=== PATIENT | male | born 1935 | race Asian ===

== ENCOUNTER 2018-03-22 12:21 | Emergency (ER) | payer OTHER, BC ==
[2018-03-22 12:31] VITALS: PULSE 90; BMI 26.6
[2018-03-22 13:53] LABS: VENOUS PH 7.4 (7.32-7.42)
[2018-03-22 13:59] LABS: BASO % 0.3 % (0-2.0); EOS % 1.2 % (0-4.5); HEMATOCRIT 37.2 % (35.4-49); HEMOGLOBIN 12.4 GM/dL (11.7-16.9); LYMPH % 11.8 % (8-40); MCHC 33.3 g/dl (32.0-35.9); MEAN CELL VOLUME 96.2 fl (80-96); MEAN PLT VOLUME 6.6 fl (7.5-11.1); MONO % 8.7 % (3.8-10.2); PLATELET COUNT 304 K/MM3 (134-434); RBC 3.86 M/mm3 (4.00-5.60); RDW 14.3 % (11.9-15.9); WHITE BLOOD COUNT 8.9 K/mm3 (4.0-10.0)
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
[2018-03-22 14:12] LABS: INR 1.03 (0.83-1.09); PROTHROMBIN TIME (PATIENT) 12.2 SEC (9.7-13.0)
[2018-03-22 14:14] LABS: ACTIVATED PTT 32.7 SECONDS (25.2-36.5)
[2018-03-22 14:25] LABS: ALBUMIN 3.6 g/dl (3.4-5.0); ALK PHOS 77 U/L (45-117); ANION GAP 6 MMOL/L (8-16); BILIRUBIN,TOTAL 0.4 mg/dL (0.2-1); BLOOD UREA NITROGEN 15 mg/dL (7-18); CALCIUM 8.5 mg/dL (8.5-10.1); CHLORIDE 106 mmol/L (98-107); CO2 27 mmol/L (21-32); CREATININE 1.3 mg/dL (0.55-1.3); GLUCOSE,RANDOM 96 mg/dL (74-106); MAGNESIUM 2.5 mg/dL (1.8-2.4); N-TERMINAL BNP 696.4 pg/ml (5-450); PHOSPHOROUS 3.1 mg/dL (2.5-4.9); POTASSIUM 4.5 mmol/L (3.5-5.1); SGOT/AST 29 U/L (15-37); SGPT/ALT 31 U/L (13-61); SODIUM 139 mmol/L (136-145); TOT PROT 7.5 g/dl (6.4-8.2)
[2018-03-22] MEDS ORDERED: SODIUM CHLORIDE 250 ML IV STA (15:18)
[2018-03-22] MEDS ORDERED: FUROSEMIDE 40 MG/4 ML INJECTABLE VIAL IVPUSH SCH (15:45)
[2018-03-22 16:18] LABS: URINE APPEARANCE CLEAR; URINE BILIRUBIN NEGATIVE (<2.0 mg/dL); URINE COLOR YELLOW; URINE GLUCOSE (UA) NEGATIVE (NEGATIVE); URINE KETONE 1+ (NEGATIVE); URINE LEUK ESTERASE NEGATIVE (NEGATIVE); URINE NITRITE NEGATIVE (NEGATIVE); URINE PROTEIN NEGATIVE (NEGATIVE); URINE UROBILINOGEN NEGATIVE mg/dL (0.2-1.0)
[2018-03-22 17:50] VITALS: BP 161/82; TEMP 97.9
--- NOTE | 2018-03-23 10:53 | EKG ---
Test Reason : Blood Pressure : / mmHG Vent. Rate : 082 BPM Atrial Rate : 082 BPM P-R Int : 128 ms QRS Dur : 086 ms QT Int : 378 ms P-R-T Axes : 064 062 050 degrees QTc Int : 441 ms NORMAL SINUS RHYTHM NONSPECIFIC ST AND T WAVE ABNORMALITY ABNORMAL ECG NO PREVIOUS ECGS AVAILABLE Confirmed by ROMA RODRIGUEZ MD ([id number]) on 03/23/2018 10:52:53 AM Referred By: Confirmed By:ROMA RODRIGUEZ MD
== END 2018-03-22 17:50 | disposition home or self-care (01) ==
LOC: JER 12:21 → MERGE 12:21 → JER 17:50
PROC: 3E0337Z Introduction of Electrolytic and Water Balance Substance into Peripheral Vein, Percutaneous Approach (ICD-10-PCS; principal; 2018-03-22)
DX: I50.9 Heart failure, unspecified (principal); I25.10 Atherosclerotic heart disease of native coronary artery without angina pectoris; I10 Essential (primary) hypertension; Z95.5 Presence of coronary angioplasty implant and graft; E86.0 Dehydration; R94.31 Abnormal electrocardiogram [ECG] [EKG]
CPT/HCPCS: 36415; 70450-TC; 71045-TC-FY; 80053; 81003; 82803; 83605; 83735; 83880; 84100; 84484; 85025; 85610; 85730; 87040; 87086; 87804; 93005; 93010; 96360; 99284-25

== ENCOUNTER 2018-03-22 21:59 | Inpatient (IN) | payer OTHER, BC ==
--- NOTE | 2018-03-22 22:21 | PDOC ---
Attending Attestation - Resident Resident Name: Silvestre Hinojosa - ED Attending Attestation I have performed the following: I have examined & evaluated the patient, The case was reviewed & discussed with the resident, I agree w/resident's findings & plan, Exceptions are as noted - HPI HPI: 83 yo M sent by Dr. Sun for admission. He was seen in ED earlier today ( chart was opened under another , registration has not been able to merge yet), then called back for EKG changes. Pt c/o fatigue, sleeping on my arrival in room. He has just returned from 19 hr flight from [facility], was there visiting for the past 2 weeks. He has been having lightheadedness, weakness. +Recent cough, sputum production. - Physicial Exam PE: GENERAL: Awake, alert, and fully oriented, in no acute distress HEAD: No signs of trauma EYES: PERRLA, EOMI, sclera anicteric, conjunctiva clear ENT: Auricles normal inspection, hearing grossly normal, nares patent, oropharynx clear without exudates. Moist mucosa NECK: Normal ROM, supple, no lymphadenopathy, JVD, or masses LUNGS: Breath sounds equal, clear to auscultation bilaterally. No wheezes, and no crackles HEART: Regular rate and rhythm, normal S1 and S2, no murmurs, rubs or gallops ABDOMEN: Soft, nontender, normoactive bowel sounds. No guarding, no rebound. No masses EXTREMITIES: Normal range of motion, no edema. No clubbing or cyanosis. No cords, erythema, or tenderness NEUROLOGICAL: Cranial nerves II through XII grossly intact. Normal speech, normal gait. Motor and sensation intact. SKIN: Warm, Dry, normal turgor, no rashes or lesions noted. - Medical Decision Making Pt called back by cardiology for admission for EKG changes.
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
--- NOTE | 2018-03-22 23:28 | HP ---
CHIEF COMPLAINT: Lightheadedness? PCP: Dr. Melendez HISTORY OF PRESENT ILLNESS: 83 yo M w/ PMH HTN, DM , CAD s/p stent, CHF, recent travel to [facility] p/ w 1-2 wks of worsening intermittent lightheadedness, dyspnea on exertion, and generalized weakness that began occurring while vacationing in [facility]. lightheadedness worsens when sitting up with movements. Also endorses cough white sputum in past 2 days and recent witnessed presyncopal fall on head when he was on the airplane from [facility] back [place] the [place]. Pt also says he has been having some trouble focusing. Denies any fever, chills, DUMONT, LOC, cp, n/v/d , blood in stools, urinary sxs, leg swelling, worsening leg pain (pt chronically has R leg pain from accident), numbness, tingling, blurry vision, focal deficits. Pt went to an urgent care previously and performed a chest x- ray which demonstrates some pleural effusions and an EKG demonstrated some ST depressions on EKG, they sent the patient to the ER. Pt was here earlier in the ED and CXR performed did not show any effusions. Pt had cardiology clearance to be discharged and was sent home. Per daughter, paper wood cutter called pt back and told them to return to the ER. Currently pt is asymptomatic and has no complaints besides being jetlagged. Pt has not had any lightheaded or dizziness spells while inbetween ER visits. Recent Travel: [facility] as above PAST MEDICAL HISTORY: As above PAST SURGICAL HISTORY: Stent (unknown material; "several years ago") Social History: Smoking: denies Alcohol: denies Drugs: denies Allergies No Known Allergies Allergy (Verified 03/22/18 22:04) HOME MEDICATIONS: Home Medications Medication Instructions Recorded Metoprolol Tartrate [Lopressor] 25 mg PO DAILY 12/25/12 Rosuvastatin Calcium [Crestor] 5 mg PO DAILY 12/25/12 REVIEW OF SYSTEMS As above PHYSICAL EXAMINATION Vital Signs - 24 hr 03/22/18 22:00 Temperature 99.8 F H Pulse Rate 100 H Respiratory 18 Rate Blood Pressure 158/75 O2 Sat by Pulse 98 Oximetry (%) GENERAL: Awake, alert, and fully oriented, in no acute distress. HEENT: EOMI, NAHOMY, sclera anicteric, NC/AT NECK: soft, no jvd LUNGS: CTA bilaterally. No wheezes, and no crackles. No accessory muscle use. HEART: RRR, normal S1 and S2 without murmur ABDOMEN: Soft, nontender, not distended, normoactive bowel sounds, no guarding, no rebound EXTREMITIES: 2+ pulses, warm, well-perfused. No calf tenderness. No peripheral edema. NEUROLOGICAL: Nonfocal exam. A&Ox3. Sensation grossly intact. CN II-XII intact. Strength 5/5 throughout. No nystagmus on exam PSYCHIATRIC: Cooperative. Good eye contact. Appropriate mood and affect. SKIN: Warm, dry, no rashes or lesions ASSESSMENT/PLAN: 1) Lightheadedness --Unclear etiology; maybe hx of vertigo? --Head CT and CXR negative upon first visit to ED --EKG with mild ST depressions in I, V4-V6; troponin negative --Repeat EKG to determine any definitive changes --Obs tele --? cardiology and neuro consult 2) DM --diet controlled --ISS --BGM FEN: Fluids: none Electrolyte: no abnormalities Nutrition: Diabetic diet PPX: DVT - Lovenox 40mg SQ daily dispo: Obs tele Case discussed with Dr. Naveed Kwan, DO - IM PGY-2 Visit type - Emergency Visit Emergency Visit: Yes ED Registration Date: 03/22/18 Care time: The patient presented to the Emergency Department on the above date and was hospitalized for further evaluation of their emergent condition. - New Patient This patient is new to me today: Yes Date on this admission: 03/22/18 - Critical Care Critical Care patient: No
[2018-03-23 03:34] VITALS: BMI 23.8
--- NOTE | 2018-03-23 09:32 | CON.CARD ---
Consult Consult Specialty:: Cardiology consult for Dr. Sun Referred by:: Dr. Kwan Reason for Consultation:: dizziness - History of Present Illness Chief Complaint: Dizziness upon standing and rising from seated positions History of Present Illness: 83M with CAD, Carotid atheromatous disease and HTN who was referred to ER yesterday from an urgent care center for possible CHF after he presented for evaluation of dizziness. Patient returned from the [facility] on 03/20 and states he has been feeling specifically when he stands from a seated or supine position. He even lost balance in the airplane walking to the bathroom. He denies chest pain or SOB, syncope or palpitations. No PND/orthopnea or edema. Denies focal neuro sx. Denies fevers or chills. At the [facility], there was reportedly "fluid" on CXR which was not appreciated on our study. A head CT was negative for acute findings. His BNP was mildly elevated in the 600s but he did not appear clinically volume overloaded. A low grade/borderline elevated temperature of 99.5F was noted and he was cultured in the ER and sent home. He was recalled later because comparison of current ECG to office ECG in January was slightly different showing NSST changes inferiorly and laterally that are slightly more pronounced. His cardiac enzymes are serially negative x 3. - History Source History Provided By: Patient, Medical Record - Past Medical History Cardio/Vascular: Yes: CAD (Prior PCI with known mutlvessel CAD), HTN Additional Medical History: Carotid disease/stenosis - Alcohol/Substance Use Hx Alcohol Use: Yes (SOCIAL) - Smoking History Smoking history: Never smoked Have you smoked in the past 12 months: No Aproximately how many cigarettes per day: 0 - Social History Usual Living Arrangement: With Significant Other Home Medications - Allergies Allergies/Adverse Reactions: Allergies Allergy/AdvReac Type Severity Reaction Status Date / Time No Known Allergies Allergy Verified 03/22/18 22:04 - Home Medications Home Medications: Ambulatory Orders Metoprolol Tartrate [Lopressor] 25 mg PO DAILY 12/25/12 Rosuvastatin Calcium [Crestor] 5 mg PO DAILY 12/25/12 Centrum Adults Tablet PO DAILY 03/23/18 Diltiazem HCl [Cartia Xt] PO DAILY 03/23/18 Fish Oil 1,000 mg Capsule PO DAILY 03/23/18 Magnesium Oxide 400 mg PO BID 03/23/18 Meloxicam PO BID 03/23/18 Vitamin B12 PO DAILY 03/23/18 Vitamin B6 - PO DAILY 03/23/18 Vitamin C PO DAILY 03/23/18 Family Disease History - Family Disease History Family History: Unremarkable (not pertinent to this presentation) Review of Systems Findings/Remarks: see HPI - Review of Systems Constitutional: reports: No Symptoms Cardiovascular: reports: Shortness of Breath (chronic) Respiratory: denies: No Symptoms, Cough, Exercise Intolerance, Hemoptysis, Orthopnea, PND, Snoring, SOB, SOB on Exertion, Wheezing, Other Gastrointestinal: denies: No Symptoms, Abdominal Pain, Bloating, Constipation, Diarrhea, Dysphagia, Indigestion, Melena, Nausea, Rectal Bleeding, Vomiting, Vomiting Blood, Other Breasts: denies: No Symptoms Reported, See HPI, Breast Implants, Discharge from Nipple, Lumps, Pain, Skin Changes, Other Musculoskeletal: denies: No Symptoms, Back Pain, Crepitus, Decreased ROM, Extremity Pain, Joint Pain, Joint Swelling, Muscle Pain, Muscle Cramps, Muscle Weakness, Other Integumentary: denies: No Symptoms, Blister, Bruising, Change in Color, Eczema, Erythema, Incision, Lesions, Lump, Pallor, Pruritis, Rash, Wound, Other Neurological: reports: Dizziness Endocrine: denies: No Symptoms, Excessive Sweating, Flushing, Increased Hunger, Increased Thirst, Intolerance to Cold, Intolerance to Heat, Unexplained Weight Gain, Unexplained Weight Loss, Other Hematology/Lymphatic: denies: No Symptoms, Easily Bruised, Excessive Bleeding, Swollen Glands, Other Psychiatric: denies: No Symptoms, Altered Sleep Pattern, Anxiety, Depression, Hallucinations, Panic, Paranoia, Suicidal, Other - Risk Factors Known Risk Factors: Yes: Hypertension, Other (Known CAD) Vital Signs: Vital Signs Temperature 98.6 F 03/23/18 06:20 Pulse Rate 95 H 03/23/18 06:20 Respiratory Rate 20 03/23/18 06:20 Blood Pressure 148/72 03/23/18 06:20 O2 Sat by Pulse Oximetry (%) 98 03/23/18 03:40 Constitutional: Yes: No Distress, Calm Eyes: Yes: Conjunctiva Clear Neck: Yes: Other (No visible JVD w/ patient sitting) Respiratory: Yes: CTA Bilaterally Gastrointestinal: Yes: Soft JVD: No Carotid Bruit: No PMI: Non-Displaced Heart Sounds: Yes: S1, S2 (RRR, no murmurs) Edema: No Neurological: Yes: Alert ...Motor Strength: WNL Psychiatric: Yes: WNL - Other Data Labs, Other Data: Troponin, BNP 03/22/18 23:50 Troponin I < 0.02 Troponin, BNP 03/22/18 23:50 Troponin I < 0.02 NSR 98bpm, NSST changes II, III, avF, V5, V6 Echo: Pending Holter: Pending Imaging - Results Chest X-ray: Image Reviewed (Reviewed on 03/23 : no clear CHF/ infiltrate.) Cat Scan: Report Reviewed EKG: Image Reviewed Problem List - Problems (1) Dizziness Code(s): R42 - DIZZINESS AND GIDDINESS (2) CAD (coronary artery disease) Code(s): I25.10 - ATHSCL HEART DISEASE OF [place] CORONARY ARTERY W/O ANG PCTRS Qualifiers: Coronary Disease-Associated Artery/Lesion type: [place] artery [place] vs. transplanted heart: [place] heart Associated angina: without angina Qualified Code(s): I25.10 - Atherosclerotic heart disease of [place] coronary artery without angina pectoris (3) Stented coronary artery Code(s): Z95.5 - PRESENCE OF CORONARY ANGIOPLASTY IMPLANT AND GRAFT (4) Hypertension Code(s): I10 - ESSENTIAL (PRIMARY) HYPERTENSION Qualifiers: Hypertension type: essential hypertension Qualified Code(s): I10 - Essential (primary) hypertension (5) Abnormal ECG Code(s): R94.31 - ABNORMAL ELECTROCARDIOGRAM [ECG] [EKG] (6) Carotid arterial disease Code(s): I77.9 - DISORDER OF ARTERIES AND ARTERIOLES, UNSPECIFIED Qualifiers: Laterality: unspecified laterality Assessment/Plan IMP: Postural dizziness, near syncope CAD with hx of PCI Abnl ECG Carotid artery disease HTN REC: 1. Orthostatics 2. Echo for EF and valvular assessment 3. Carotid US , although current dizziness sounds more orthostatic in nature. If posterior circulation is being considered for evaluation can consider MRA. 4. If no clear source of dizziness is identified, can consider repeating stress MPI 5. Would continue home meds including Metoprolol, Cartia (clarify dose) and ASA 81mg daily. 6. Holter to r/o arrhythmia while awaiting tele bed. 7. Mildly elevated BNP is of unclear clinical sig as he is not clinically in CHF. Echo as above as an eval of LVEF/ valvular fxn and diastolic fx. Coverage for Dr. Sun
[2018-03-23] MEDS: METOPROLOL TARTRATE 25 MG TABLET (FP) PO SCH (09:52)
[2018-03-23] MEDS ORDERED: PNEUMOC 13-VAL CONJ-DIP CRM/PF 0.5 ML DISP.SYRIN IM ONE (10:00)
[2018-03-23 10:29] LABS: BASO % 0.2 % (0-2.0); EOS % 0.2 % (0-4.5); HEMATOCRIT 35.3 % (35.4-49); HEMOGLOBIN 11.8 GM/dL (11.7-16.9); MCH 31.8 pg (25.7-33.7); MCHC 33.4 g/dl (32.0-35.9); MEAN CELL VOLUME 95.2 fl (80-96); MEAN PLT VOLUME 6.6 fl (7.5-11.1); MONO % 8.9 % (3.8-10.2); NEUT % 82.7 % (42.8-82.8); PLATELET COUNT 268 K/MM3 (134-434); RBC 3.71 M/mm3 (4.00-5.60); RDW 14.3 % (11.9-15.9); WHITE BLOOD COUNT 9.2 K/mm3 (4.0-10.0)
[2018-03-23 11:00] LABS: ANION GAP 5 MMOL/L (8-16); BLOOD UREA NITROGEN 12 mg/dL (7-18); CHLORIDE 102 mmol/L (98-107); CO2 25 mmol/L (21-32); GLUCOSE,RANDOM 101 mg/dL (74-106); SODIUM 133 mmol/L (136-145)
--- NOTE | 2018-03-23 12:17 | PN ---
Progress Note, Physician Chief Complaint: Pt is going for cardiac cath for Ischemic changes seen in stress test History of Present Illness: Pt admitted with Dizzeness persistant with EKG changes and Stress test positive - Current Medication List Current Medications: Active Medications Metoprolol Tartrate (Lopressor -) 25 mg PO DAILY [facility] Last Admin: 03/23/18 09:52 Dose: 25 mg Rosuvastatin Calcium (Crestor -) 5 mg PO HS [facility] - Objective Vital Signs: Vital Signs Temperature 98.9 F 03/23/18 10:00 Pulse Rate 89 03/23/18 10:00 Respiratory Rate 19 03/23/18 10:00 Blood Pressure 135/89 03/23/18 10:00 O2 Sat by Pulse Oximetry (%) 98 03/23/18 03:40 Constitutional: Yes: No Distress, Calm Eyes: Yes: Conjunctiva Clear, EOM Intact HENT: Yes: Atraumatic, Normocephalic Neck: Yes: Supple, Trachea Midline Cardiovascular: Yes: Regular Rate and Rhythm Respiratory: Yes: Regular, CTA Bilaterally Gastrointestinal: Yes: Normal Bowel Sounds, Soft Labs: CBC, BMP 03/23/18 10:24 03/23/18 10:24 Problem List - Problems (1) Dizziness Code(s): R42 - DIZZINESS AND GIDDINESS (2) CHF exacerbation Code(s): I50.9 - HEART FAILURE, UNSPECIFIED Qualifiers: Heart failure type: unspecified Qualified Code(s): I50.9 - Heart failure, unspecified (3) Hypertension Code(s): I10 - ESSENTIAL (PRIMARY) HYPERTENSION Qualifiers: Hypertension type: essential hypertension Qualified Code(s): I10 - Essential (primary) hypertension (4) Carotid arterial disease Code(s): I77.9 - DISORDER OF ARTERIES AND ARTERIOLES, UNSPECIFIED Qualifiers: Laterality: unspecified laterality (5) EKG abnormalities Code(s): R94.31 - ABNORMAL ELECTROCARDIOGRAM [ECG] [EKG] (6) Stented coronary artery Code(s): Z95.5 - PRESENCE OF CORONARY ANGIOPLASTY IMPLANT AND GRAFT (7) PSVT (paroxysmal supraventricular tachycardia) Code(s): I47.1 - SUPRAVENTRICULAR TACHYCARDIA
--- NOTE | 2018-03-23 12:17 | HP ---
Admitting History and Physical - Admission Chief Complaint: Light headdedness History of Present Illness: 83 yo M w/ PMH HTN, DM , CAD s/p stent, CHF, recent travel to [facility] p/w 1- 2 wks of worsening intermittent lightheadedness, dyspnea on exertion, and generalized weakness that began occurring while vacationing in [facility]. lightheadedness worsens when sitting up with movements. Also endorses cough white sputum in past 2 days and recent witnessed presyncopal fall on head when he was on the airplane from [facility] [place]. Pt also says he has been having some touble focusing. Denies any fever, chills, DUMONT, LOC, cp, n/v/d, blood in stools, urinary sxs, leg swelling, worsening leg pain (pt chronically has R leg pain from accident), numbness, tingling, blurry vision, focal deficits. Pt went to an urgent care today and performed a chest x-ray which demonstrates some pleural effusions and an EKG demonstrated some ST depressions on EKG, they sent the patient to the ER." History Source: Patient, Family Member Limitations to Obtaining History: No Limitations - Past Medical History Cardiovascular: Yes: CAD (Prior PCI with known mutlvessel CAD), HTN Gastrointestinal: Yes: Hiatal Hernia Musculoskeletal: Yes: Osteoarthritis - Past Surgical History Past Surgical History: Yes: Stent - Smoking History Smoking history: Never smoked Have you smoked in the past 12 months: No Aproximately how many cigarettes per day: 0 - Alcohol/Substance Use Hx Alcohol Use: Yes (SOCIAL) Home Medications - Allergies Allergies/Adverse Reactions: Allergies Allergy/AdvReac Type Severity Reaction Status Date / Time No Known Allergies Allergy Verified 03/22/18 22:04 - Home Medications Home Medications: Ambulatory Orders Metoprolol Tartrate [Lopressor] 25 mg PO DAILY 12/25/12 Rosuvastatin Calcium [Crestor] 5 mg PO DAILY 12/25/12 Unobtainable 03/22/18 Centrum Adults Tablet PO DAILY 03/23/18 Diltiazem HCl [Cartia Xt] PO DAILY 03/23/18 Fish Oil 1,000 mg Capsule PO DAILY 03/23/18 Magnesium Oxide 400 mg PO BID 03/23/18 Meloxicam PO BID 03/23/18 Vitamin B12 PO DAILY 03/23/18 Vitamin B6 - PO DAILY 03/23/18 Vitamin C PO DAILY 03/23/18 Review of Systems - Review of Systems Constitutional: reports: Weakness, Other (Dizziness) HENT: reports: Difficult Swallowing Gastrointestinal: reports: Dysphagia Physical Examination Vital Signs: Vital Signs Temperature 98.9 F 03/23/18 10:00 Pulse Rate 89 03/23/18 10:00 Respiratory Rate 19 03/23/18 10:00 Blood Pressure 135/89 03/23/18 10:00 O2 Sat by Pulse Oximetry (%) 98 03/23/18 03:40 Labs: CBC, BMP 03/23/18 10:24 03/23/18 10:24 Problem List - Problems (1) Dizziness Code(s): R42 - DIZZINESS AND GIDDINESS (2) CHF exacerbation Code(s): I50.9 - HEART FAILURE, UNSPECIFIED Qualifiers: Heart failure type: unspecified Qualified Code(s): I50.9 - Heart failure, unspecified (3) Hypertension Code(s): I10 - ESSENTIAL (PRIMARY) HYPERTENSION Qualifiers: Hypertension type: essential hypertension Qualified Code(s): I10 - Essential (primary) hypertension (4) PSVT (paroxysmal supraventricular tachycardia) Code(s): I47.1 - SUPRAVENTRICULAR TACHYCARDIA (5) Stented coronary artery Code(s): Z95.5 - PRESENCE OF CORONARY ANGIOPLASTY IMPLANT AND GRAFT (6) Carotid arterial disease Code(s): I77.9 - DISORDER OF ARTERIES AND ARTERIOLES, UNSPECIFIED Qualifiers: Laterality: unspecified laterality (7) Abnormal ECG Code(s): R94.31 - ABNORMAL ELECTROCARDIOGRAM [ECG] [EKG] Assessment/Plan (1) Dizziness Code(s): R42 - DIZZINESS AND GIDDINESS (2) CHF exacerbation Code(s): I50.9 - HEART FAILURE, UNSPECIFIED Qualifiers: Heart failure type: unspecified Qualified Code(s): I50.9 - Heart failure, unspecified (3) Hypertension Code(s): I10 - ESSENTIAL (PRIMARY) HYPERTENSION Qualifiers: Hypertension type: essential hypertension Qualified Code(s): I10 - Essential (primary) hypertension (4) PSVT (paroxysmal supraventricular tachycardia) Code(s): I47.1 - SUPRAVENTRICULAR TACHYCARDIA (5) Stented coronary artery Code(s): Z95.5 - PRESENCE OF CORONARY ANGIOPLASTY IMPLANT AND GRAFT (6) Carotid arterial disease Code(s): I77.9 - DISORDER OF ARTERIES AND ARTERIOLES, UNSPECIFIED Qualifiers: Laterality: unspecified laterality (7) Abnormal ECG Code(s): R94.31 - ABNORMAL ELECTROCARDIOGRAM [ECG] [EKG]
[2018-03-23] MEDS: MAGNESIUM OXIDE 400 MG TABLET (FP) PO SCH ×2 (13:24→22:00)
[2018-03-23] MEDS: ASPIRIN COATED 81 MG TABLET.EC PO SCH (13:24)
[2018-03-23] MEDS ORDERED: MAGNESIUM HYDROX 2400MG/30ML ORAL SUSPENSION 30 ML CUP PO PRN (13:24)
[2018-03-23] MEDS ORDERED: PT OWN MED DRAWER 7, Y5N ONE (14:48)
[2018-03-23] MEDS: AZITHROMYCIN 250 MG TABLET PO SCH (16:10)
--- NOTE | 2018-03-23 16:25 | CON.NEURO ---
Consult Consult Specialty:: Neurology (For Dr. Mcknight) Referred by:: Dr. Cherry An Reason for Consultation:: Dizziness - History of Present Illness Chief Complaint: Dizziness and Malaise History of Present Illness: 83 year old man with history of chronic dizziness returned from a trip to the [facility] and felt quite ill when he got home. He was jet lagged, tired, and dizzier than usual, went to urgent care and an EKG was read as suspicious resulting in eventual admission to the hospital. He has been followed for years for dizziness, which as per patient's daughter is not clearly diagnosed, as there appears to be both orthostatic and vertiginous components. He is dizzy every morning when he first gets up but this quickly passes. When he saw ENT and was subjected to rapid head turn, he experienced a sense of spinning, but reportedly that was not a reproduction of his usual dizzy feeling. He had been feeling better and stronger since getting home, until he was hospitalized and being out of his home environment, feels a bit "off" again. 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 Cardio/Vascular: Yes: CAD (Prior PCI with known mutlvessel CAD), HTN, Other ( orthostatic dizziness) Additional Medical History: Carotid disease/stenosis - Alcohol/Substance Use Hx Alcohol Use: Yes (SOCIAL) - Smoking History Smoking history: Never smoked Have you smoked in the past 12 months: No Aproximately how many cigarettes per day: 0 - Social History Usual Living Arrangement: With Significant Other Home Medications - Allergies Allergies/Adverse Reactions: Allergies Allergy/AdvReac Type Severity Reaction Status Date / Time No Known Allergies Allergy Verified 03/22/18 22:04 - Home Medications Home Medications: Ambulatory Orders Metoprolol Tartrate [Lopressor] 25 mg PO DAILY 12/25/12 Rosuvastatin Calcium [Crestor] 5 mg PO DAILY 12/25/12 Centrum Adults Tablet PO DAILY 03/23/18 Diltiazem HCl [Cartia Xt] PO DAILY 03/23/18 Fish Oil 1,000 mg Capsule PO DAILY 03/23/18 Magnesium Oxide 400 mg PO BID 03/23/18 Meloxicam PO BID 03/23/18 Vitamin B12 PO DAILY 10/14/18 Vitamin B6 - PO DAILY 03/23/18 Vitamin C PO DAILY 03/23/18 Review of Systems - Review of Systems Cardiovascular: reports: Shortness of Breath (on climbing stairs with associated fatigue) Physical Exam-Neuro Vital Signs: Vital Signs Temperature 101.0 F H 03/23/18 14:52 Pulse Rate 69 03/23/18 14:52 Respiratory Rate 20 03/23/18 14:52 Blood Pressure 126/60 03/23/18 14:52 O2 Sat by Pulse Oximetry (%) 98 03/23/18 03:40 Labs: CBC, BMP 03/23/18 10:24 03/23/18 10:24 Problem List - Problems (1) Abnormal ECG Code(s): R94.31 - ABNORMAL ELECTROCARDIOGRAM [ECG] [EKG] (2) CAD (coronary artery disease) Code(s): I25.10 - ATHSCL HEART DISEASE OF [place] CORONARY ARTERY W/O ANG PCTRS Qualifiers: Coronary Disease-Associated Artery/Lesion type: [place] artery [place] vs. transplanted heart: [place] heart Associated angina: without angina Qualified Code(s): I25.10 - Atherosclerotic heart disease of [place] coronary artery without angina pectoris (3) Carotid arterial disease Code(s): I77.9 - DISORDER OF ARTERIES AND ARTERIOLES, UNSPECIFIED Qualifiers: Laterality: unspecified laterality (4) Dizziness Code(s): R42 - DIZZINESS AND GIDDINESS (5) EKG abnormalities Code(s): R94.31 - ABNORMAL ELECTROCARDIOGRAM [ECG] [EKG] (6) Hypertension Code(s): I10 - ESSENTIAL (PRIMARY) HYPERTENSION Qualifiers: Hypertension type: essential hypertension Qualified Code(s): I10 - Essential (primary) hypertension (7) Stented coronary artery Code(s): Z95.5 - PRESENCE OF CORONARY ANGIOPLASTY IMPLANT AND GRAFT (8) Accidental fall Code(s): W19.XXXA - UNSPECIFIED FALL, INITIAL ENCOUNTER Assessment/Plan Patient with chronic dizziness and exacerbation of fatigue and general dizziness after long trip to [facility] with some jet lag and now admitted with EKG changes. Dr. Mcknight to return Saturday. I'll order MRI for his vertigo.dizziness
[2018-03-23] MEDS ORDERED: ACETAMINOPHEN 325 MG TABLET (FP) PO PRN (17:52)
[2018-03-23] MEDS: DOCUSATE SODIUM 100 MG CAPSULE (FP) PO SCH (22:00)
[2018-03-23] MEDS ORDERED: ROSUVASTATIN CA 5 MG TABLET (FP) PO SCH (22:00)
[2018-03-23] MEDS: ROSUVASTATIN CA 10 MG TABLET (FP) PO SCH (22:00)
[2018-03-24 09:16] LABS: URINE APPEARANCE CLEAR; URINE BILIRUBIN NEGATIVE (<2.0 mg/dL); URINE COLOR YELLOW; URINE GLUCOSE (UA) NEGATIVE (NEGATIVE); URINE KETONE 1+ (NEGATIVE); URINE LEUK ESTERASE NEGATIVE (NEGATIVE); URINE NITRITE NEGATIVE (NEGATIVE); URINE PROTEIN NEGATIVE (NEGATIVE); URINE UROBILINOGEN NEGATIVE mg/dL (0.2-1.0)
--- NOTE | 2018-03-24 09:47 | PN ---
Progress Note, Physician History of Present Illness: 83M with CAD, Carotid atheromatous disease and HTN who was referred to ER yesterday from an urgent care center for possible CHF after he presented for evaluation of dizziness. Patient returned from the [facility] on 03/20 and states he has been feeling specifically when he stands from a seated or supine position. He even lost balance in the airplane walking to the bathroom. He denies chest pain or SOB, syncope or palpitations. No PND/orthopnea or edema. Denies focal neuro sx. Denies fevers or chills. At the [facility], there was reportedly "fluid" on CXR which was not appreciated on our study. A head CT was negative for acute findings. His BNP was mildly elevated in the 600s but he did not appear clinically volume overloaded. A low grade/borderline elevated temperature of 99.5F was noted and he was cultured in the ER and sent home. He was recalled later because comparison of current ECG to office ECG in January was slightly different showing NSST changes inferiorly and laterally that are slightly more pronounced. - Current Medication List Current Medications: Active Medications Acetaminophen (Tylenol -) 650 mg PO Q4H PRN PRN Reason: FEVER Last Admin: 03/23/18 18:33 Dose: 650 mg Aspirin (Ecotrin -) 81 mg PO DAILY [facility] Last Admin: 03/23/18 13:24 Dose: 81 mg Azithromycin (Zithromax -) 500 mg PO DAILY [facility] Stop: 03/26/18 10:01 Last Admin: 03/23/18 16:10 Dose: 500 mg Diltiazem HCl (Cardizem Cd -) 120 mg PO DAILY [facility] Last Admin: 03/23/18 13:24 Dose: 120 mg Docusate Sodium (Colace -) 300 mg PO HS [facility] Last Admin: 03/23/18 22:00 Dose: 300 mg Magnesium Hydroxide (Milk Of Magnesia -) 30 ml PO DAILY PRN PRN Reason: CONSTIPATION Last Admin: 03/23/18 13:35 Dose: 30 ml Magnesium Oxide (Mag-Ox -) 400 mg PO BID [facility] Last Admin: 03/23/18 22:00 Dose: 400 mg Metoprolol Tartrate (Lopressor -) 25 mg PO DAILY [facility] Last Admin: 03/23/18 09:52 Dose: 25 mg Rosuvastatin Calcium (Crestor -) 10 mg PO HS [facility] Last Admin: 10/14/18 22:00 Dose: 10 mg - Objective Vital Signs: Vital Signs Temperature 99.4 F 03/24/18 05:30 Pulse Rate 76 03/24/18 05:30 Respiratory Rate 20 03/23/18 20:53 Blood Pressure 146/67 03/24/18 05:30 O2 Sat by Pulse Oximetry (%) 98 03/23/18 23:00 Eyes: Yes: WNL, Conjunctiva Clear, EOM Intact HENT: Yes: WNL, Atraumatic, Normocephalic Neck: Yes: WNL, Supple, Trachea Midline Cardiovascular: Yes: WNL, Regular Rate and Rhythm Respiratory: Yes: WNL, Regular, CTA Bilaterally Gastrointestinal: Yes: WNL, Normal Bowel Sounds Genitourinary: Yes: WNL Musculoskeletal: Yes: WNL Extremities: Yes: WNL Edema: No Integumentary: Yes: WNL Neurological: Yes: WNL, Alert, Oriented ...Motor Strength: WNL Psychiatric: Yes: WNL Labs: CBC, BMP 03/23/18 10:24 03/23/18 10:24 Assessment/Plan IMP: Postural dizziness, near syncope CAD with hx of PCI Abnl ECG Carotid artery disease HTN REC: 1. Orthostatics 2. Echo for EF and valvular assessment 3. Carotid US , although current dizziness sounds more orthostatic in nature. If posterior circulation is being considered for evaluation can consider MRA. 4. If no clear source of dizziness is identified, can consider repeating stress MPI 5. Would continue home meds including Metoprolol, Cartia (clarify dose) and ASA 81mg daily. 6. Holter to r/o arrhythmia while awaiting tele bed. 7. Mildly elevated BNP is of unclear clinical sig as he is not clinically in CHF. Echo as above as an eval of LVEF/ valvular fxn and diastolic fx.
--- NOTE | 2018-03-24 10:34 | EKG ---
Test Reason : Blood Pressure : / mmHG Vent. Rate : 098 BPM Atrial Rate : 098 BPM P-R Int : 136 ms QRS Dur : 090 ms QT Int : 356 ms P-R-T Axes : 052 057 044 degrees QTc Int : 454 ms NORMAL SINUS RHYTHM T WAVE ABNORMALITY, CONSIDER INFERIOR ISCHEMIA ABNORMAL ECG WHEN COMPARED WITH ECG OF 05-DEC-2016 10:35, VENT. RATE HAS INCREASED BY 36 BPM T WAVE VARIATION Confirmed by LOUIE MARQUEZ, FREDDY ([id number]) on 03/24/2018 10:33:53 AM Referred By: Confirmed By:FREDDY PALMA MD
--- NOTE | 2018-03-24 11:27 | ECHO ---
Name: PALAK ZARCO Exam:Adult Echocardiogram Study Date: 03/24/2018 10:23 AM Age: 83 yrs Reason For Study: CHF Height: 67 in Weight: 152 lb BSA: 1.8 m2 MMode/2D Measurements & Calculations IVSd: 0.88 cm Ao root diam: 2.7 cm LVIDd: 4.9 cm LA dimension: 3.0 cm LVIDs: 3.1 cm LVPWd: 0.78 cm EDV(Teich): 113.9 ml LVOT diam: 2.0 cm ESV(Teich): 38.7 ml TAPSE: 1.4 cm RV S Lawrence: 14.0 cm/sec Doppler Measurements & Calculations Med Peak E' Lawrence: 3.2 cm/sec Lat Peak E' [place]: 6.7 cm/sec Procedure A complete two-dimensional transthoracic echocardiogram was performed (2D, M-mode, Doppler and color flow Doppler). Technically limited study. Left Ventricle The left ventricle is normal in size. Left ventricular systolic function is normal. Ejection Fraction = 60- 65%. E/A reversal mitral inflow with TDI revealing impaired relaxation with elevated filling pressure (E/E' >20). No regional wall motion abnormalities noted. Right Ventricle The right ventricle is normal size. The right ventricular systolic function is normal. RV systolic TD I is 14 cm/s. Atria The left atrial size is normal. Right atrial size is normal. Mitral Valve There is mild mitral annular calcification. There is no mitral regurgitation noted. Tricuspid Valve The tricuspid valve is normal in structure and function. There is trace tricuspid regurgitation. Aortic Valve There is mild aortic sclerosis.;. No aortic regurgitation is present. Pulmonic Valve The pulmonic valve is not well visualized. Great Vessels The aortic root is normal size. Pericardium/Pleura There is no pericardial effusion. Interpretation Summary Technically limited study The left ventricle is normal in size. Left ventricular systolic function is normal. No regional wall motion abnormalities noted. Ejection Fraction = 60-65%. E/A reversal mitral inflow with TDI revealing impaired relaxation with elevated filling pressure (E/E ' >20) The right ventricular systolic function is normal. The left atrial size is normal. Right atrial size is normal. There is mild mitral annular calcification. There is trace tricuspid regurgitation. There is mild aortic sclerosis. There is no pericardial effusion. Previous study is not available for comparison Luis E Wilkerson MD 03/24/2018 11:27 AM
[2018-03-24] MEDS: AZITHROMYCIN 250 MG TABLET PO SCH (11:51)
[2018-03-24] MEDS: MAGNESIUM OXIDE 400 MG TABLET (FP) PO SCH ×2 (11:51→21:14)
[2018-03-24] MEDS: METOPROLOL TARTRATE 25 MG TABLET (FP) PO SCH (11:51)
[2018-03-24] MEDS: ASPIRIN COATED 81 MG TABLET.EC PO SCH (11:51)
--- NOTE | 2018-03-24 13:47 | HOL ---
Hook-up date: 2018-03-23 10:48:00 Duration: 23:48:00 Test Indications: CAD AND DIZZINESS Medications: [id number] QRS complexes 25 Ventricular ectopics which represent <1 % of total QRS comp. 67 Supraventricular ectopics which represent <1 % of total QRS comp. * Paced QRS complexs which represent % of total QRS comp. * % of Time Classified as Noise VENTRICULAR ECTOPY 25 Isolated 0 Bigeminal Cycles 0 Couplets 0 Runs 0 Beats in Runs * Beats LONGEST at * BPM at :: -- * Beats FASTEST at * BPM at :: -- SUPRAVENTRICULAR ECTOPY 63 Isolated 0 Couplets 1 Runs 4 Beats in Runs 4 Beats LONGEST at 156 BPM at 07:38:56 2018-03-24 4 Beats FASTEST at 156 BPM at 07:38:56 2018-03-24 HEART RATES 55 MIN at 20:56:39 2018-03-23 75 AVG 129 MAX at 09:14:23 2018-03-24 LONGEST RR 1.328 secs at 20:56:34 2018-03-23 SCANNED BY ANNELIESE RODRIGUEZ ON 03/24/18 1. BASELINE RHYTHM IS SINUS WITH AVERAGE HR OF 75 BPM. RATES VARIED FROM 55 TO 129 BPM 2. OCCASIONAL VENTRICULAR ECTOPIES INCLUDING PVCS 3. OCCASIONAL ATRIAL ECTOPIES INCLUDING APCS AND ONE NSSVT LIKELY ATRIAL TACHYCARDIA (4 BEATS) 4, NO SIGNIFICANT ST-T VARIATIONS 5. DIARY WAS NOT SUBMITTED Confirmed by FREDDY PALMA MD ([id number]) on 03/24/2018 1:47:16 PM Referred By: TONI LEWIS,[facility] Overread By: FREDDY PALMA MD
--- NOTE | 2018-03-24 18:33 | PN ---
Progress Note, Physician Chief Complaint: Pt is having dizziness No Chest pain No abd pain History of Present Illness: Pt is still having Dizziness Pt Stress test positve - Current Medication List Current Medications: Active Medications Acetaminophen (Tylenol -) 650 mg PO Q4H PRN PRN Reason: FEVER Last Admin: 03/23/18 18:33 Dose: 650 mg Aspirin (Ecotrin -) 81 mg PO DAILY [facility] Last Admin: 03/24/18 11:51 Dose: 81 mg Azithromycin (Zithromax -) 500 mg PO DAILY [facility] Stop: 03/26/18 10:01 Last Admin: 03/24/18 11:51 Dose: 500 mg Diltiazem HCl (Cardizem Cd -) 120 mg PO DAILY [facility] Last Admin: 03/24/18 11:51 Dose: 120 mg Docusate Sodium (Colace -) 300 mg PO HS [facility] Last Admin: 03/23/18 22:00 Dose: 300 mg Magnesium Hydroxide (Milk Of Magnesia -) 30 ml PO DAILY PRN PRN Reason: CONSTIPATION Last Admin: 03/23/18 13:35 Dose: 30 ml Magnesium Oxide (Mag-Ox -) 400 mg PO BID [facility] Last Admin: 03/24/18 11:51 Dose: 400 mg Metoprolol Tartrate (Lopressor -) 25 mg PO DAILY [facility] Last Admin: 03/24/18 11:51 Dose: 25 mg Rosuvastatin Calcium (Crestor -) 10 mg PO HS [facility] Last Admin: 03/23/18 22:00 Dose: 10 mg - Objective Vital Signs: Vital Signs Temperature 99.0 F 03/24/18 14:00 Pulse Rate 71 03/24/18 14:00 Respiratory Rate 18 03/24/18 14:00 Blood Pressure 116/71 03/24/18 14:00 O2 Sat by Pulse Oximetry (%) 98 03/23/18 23:00 Constitutional: Yes: No Distress, Calm Eyes: Yes: Conjunctiva Clear, EOM Intact HENT: Yes: Atraumatic, Normocephalic Neck: Yes: Supple, Trachea Midline Cardiovascular: Yes: Regular Rate and Rhythm, S1, S2 Respiratory: Yes: Regular, CTA Bilaterally Gastrointestinal: Yes: Normal Bowel Sounds, Soft Musculoskeletal: Yes: Joint Stiffness Edema: No Labs: CBC, BMP 03/23/18 10:24 03/23/18 10:24 Problem List - Problems (1) Dizziness Code(s): R42 - DIZZINESS AND GIDDINESS (2) CHF exacerbation Code(s): I50.9 - HEART FAILURE, UNSPECIFIED Qualifiers: Heart failure type: unspecified Qualified Code(s): I50.9 - Heart failure, unspecified (3) Carotid arterial disease Code(s): I77.9 - DISORDER OF ARTERIES AND ARTERIOLES, UNSPECIFIED Qualifiers: Laterality: unspecified laterality (4) PSVT (paroxysmal supraventricular tachycardia) Code(s): I47.1 - SUPRAVENTRICULAR TACHYCARDIA (5) Stented coronary artery Code(s): Z95.5 - PRESENCE OF CORONARY ANGIOPLASTY IMPLANT AND GRAFT (6) CAD (coronary artery disease) Code(s): I25.10 - ATHSCL HEART DISEASE OF [place] CORONARY ARTERY W/O ANG PCTRS Qualifiers: Coronary Disease-Associated Artery/Lesion type: [place] artery [place] vs. transplanted heart: [place] heart Associated angina: without angina Qualified Code(s): I25.10 - Atherosclerotic heart disease of [place] coronary artery without angina pectoris Assessment/Plan (1) Dizziness Code(s): R42 - DIZZINESS AND GIDDINESS (2) CHF exacerbation Code(s): I50.9 - HEART FAILURE, UNSPECIFIED Qualifiers: Heart failure type: unspecified Qualified Code(s): I50.9 - Heart failure, unspecified (3) Hypertension Code(s): I10 - ESSENTIAL (PRIMARY) HYPERTENSION Qualifiers: Hypertension type: essential hypertension Qualified Code(s): I10 - Essential (primary) hypertension (4) PSVT (paroxysmal supraventricular tachycardia) Code(s): I47.1 - SUPRAVENTRICULAR TACHYCARDIA (5) Stented coronary artery Code(s): Z95.5 - PRESENCE OF CORONARY ANGIOPLASTY IMPLANT AND GRAFT (6) Carotid arterial disease Code(s): I77.9 - DISORDER OF ARTERIES AND ARTERIOLES, UNSPECIFIED Qualifiers: Laterality: unspecified laterality (7) Abnormal ECG Code(s): R94.31 - ABNORMAL ELECTROCARDIOGRAM [ECG] [EKG] Sitress Test: Inferiolateral wall Ischemia
[2018-03-24] MEDS: MECLIZINE HCL 25 MG TABLET (FP) PO SCH (21:14)
[2018-03-24] MEDS: DOCUSATE SODIUM 100 MG CAPSULE (FP) PO SCH (21:14)
[2018-03-24] MEDS: ROSUVASTATIN CA 10 MG TABLET (FP) PO SCH (21:14)
[2018-03-25] MEDS: MECLIZINE HCL 25 MG TABLET (FP) PO SCH ×3 (05:30→21:18)
--- NOTE | 2018-03-25 08:55 | PN ---
Progress Note, Physician Chief Complaint: Pt alert; feels weak but not dizzy; no chest pain or dyspnea. History of Present Illness: 83 yo M sent by Dr. Sun for admission. He was seen in ED earlier today ( chart was opened under another , registration has not been able to merge yet), then called back for EKG changes. Pt c/o fatigue, sleeping on my arrival in room. He has just returned from 19 hr flight from [facility], was there visiting for the past 2 weeks. He has been having lightheadedness, weakness. +Recent cough, sputum production. - Current Medication List Current Medications: Active Medications Acetaminophen (Tylenol -) 650 mg PO Q4H PRN PRN Reason: FEVER Last Admin: 03/23/18 18:33 Dose: 650 mg Aspirin (Ecotrin -) 81 mg PO DAILY [facility] Last Admin: 03/24/18 11:51 Dose: 81 mg Azithromycin (Zithromax -) 500 mg PO DAILY [facility] Stop: 03/26/18 10:01 Last Admin: 03/24/18 11:51 Dose: 500 mg Diltiazem HCl (Cardizem Cd -) 120 mg PO DAILY [facility] Last Admin: 03/24/18 11:51 Dose: 120 mg Docusate Sodium (Colace -) 300 mg PO HS [facility] Last Admin: 03/24/18 21:14 Dose: 300 mg Magnesium Hydroxide (Milk Of Magnesia -) 30 ml PO DAILY PRN PRN Reason: CONSTIPATION Last Admin: 03/23/18 13:35 Dose: 30 ml Magnesium Oxide (Mag-Ox -) 400 mg PO BID [facility] Last Admin: 03/24/18 21:14 Dose: 400 mg Meclizine HCl (Antivert -) 25 mg PO TID [facility] Last Admin: 03/25/18 05:30 Dose: 25 mg Metoprolol Tartrate (Lopressor -) 25 mg PO DAILY [facility] Last Admin: 03/24/18 11:51 Dose: 25 mg Rosuvastatin Calcium (Crestor -) 10 mg PO HS [facility] Last Admin: 03/24/18 21:14 Dose: 10 mg - Objective Vital Signs: Vital Signs Temperature 99.4 F 03/25/18 06:00 Pulse Rate 72 03/25/18 06:00 Respiratory Rate 20 03/25/18 06:00 Blood Pressure 134/63 03/25/18 06:00 O2 Sat by Pulse Oximetry (%) 98 03/25/18 06:00 Constitutional: Yes: Calm Eyes: Yes: WNL HENT: Yes: WNL Neck: Yes: WNL Cardiovascular: Yes: Regular Rate and Rhythm, S1, S2 Respiratory: Yes: WNL Gastrointestinal: Yes: Soft ...Rectal Exam: Yes: Deferred Genitourinary: No: Anuria Musculoskeletal: Yes: Muscle Weakness Extremities: Yes: WNL Edema: No Peripheral Pulses WNL: Yes Integumentary: Yes: WNL Neurological: Yes: Unsteady Gait, Weakness Psychiatric: Yes: Alert, Oriented, Other Labs: CBC, BMP 03/23/18 10:24 03/23/18 10:24 Problem List - Problems (1) Abnormal ECG Assessment/Plan: please see under "CAD" Code(s): R94.31 - ABNORMAL ELECTROCARDIOGRAM [ECG] [EKG] (2) CAD (coronary artery disease) Assessment/Plan: Hx + stress MIBI 2008-->coronary angiogram at [facility] 2008 that showed moderate 3VD (medical therapy was recommended, with consideration of PCI if pt could tolerate ASA and clopidogrel); pt reportedly had a coronary stent at [facility], but no records were found when that hospital was contacted. Now with new mild T wave changes compared to 01/2018 EKG: consider inferior and/ or lateeral ischemia. TNI <0.02 x 3 Pt will undergo a stress Lexiscan MIBI (no hx asthma). Code(s): I25.10 - ATHSCL HEART DISEASE OF [place] CORONARY ARTERY W/O ANG PCTRS Qualifiers: Coronary Disease-Associated Artery/Lesion type: [place] artery [place] vs. transplanted heart: [place] heart Associated angina: without angina Qualified Code(s): I25.10 - Atherosclerotic heart disease of [place] coronary artery without angina pectoris (3) Carotid arterial disease Assessment/Plan: moderate bilateral ICA and ECA plaque without significant stenoses noted on 2017 catorid artrery US; CTA neck was order, but pt did not have test done. If neurologist concurs, ecommend CTA or MRA of carotid arteries. F/u lipid panel; aggressive lipid control with statin, diet, exercise. Code(s): I77.9 - DISORDER OF ARTERIES AND ARTERIOLES, UNSPECIFIED Qualifiers: Laterality: unspecified laterality (4) Dizziness Assessment/Plan: Holter: NSR; no significant pauses; APCs, with one 4-beat run of ?PSVT at 156 bpm. F/u orthostatic VS. hydration. F/u with neurologist. Code(s): R42 - DIZZINESS AND GIDDINESS (5) Hypertension Code(s): I10 - ESSENTIAL (PRIMARY) HYPERTENSION Qualifiers: Hypertension type: essential hypertension Qualified Code(s): I10 - Essential (primary) hypertension (6) Accidental fall Code(s): W19.XXXA - UNSPECIFIED FALL, INITIAL ENCOUNTER (7) PSVT (paroxysmal supraventricular tachycardia) Assessment/Plan: Holter notes brief runs of PSVT. Pt is on metoprolol (will change to succinated for better 24 hour coverage; if it is felt necessary to use tartrate, it shouild be given bid-tid). He is also on diltiazem. F/u EKG and Holter serially. Code(s): I47.1 - SUPRAVENTRICULAR TACHYCARDIA
--- NOTE | 2018-03-25 08:56 | PN ---
Progress Note, Physician Chief Complaint: Pt is having dizziness No Chest pain No abd pain stress test positive History of Present Illness: Pt is still having Dizziness Pt Stress test positve - Current Medication List Current Medications: Active Medications Acetaminophen (Tylenol -) 650 mg PO Q4H PRN PRN Reason: FEVER Last Admin: 03/23/18 18:33 Dose: 650 mg Aspirin (Ecotrin -) 81 mg PO DAILY [facility] Last Admin: 03/24/18 11:51 Dose: 81 mg Azithromycin (Zithromax -) 500 mg PO DAILY [facility] Stop: 03/26/18 10:01 Last Admin: 03/24/18 11:51 Dose: 500 mg Diltiazem HCl (Cardizem Cd -) 120 mg PO DAILY [facility] Last Admin: 03/24/18 11:51 Dose: 120 mg Docusate Sodium (Colace -) 300 mg PO [facility] Last Admin: 03/24/18 21:14 Dose: 300 mg Magnesium Hydroxide (Milk Of Magnesia -) 30 ml PO DAILY PRN PRN Reason: CONSTIPATION Last Admin: 03/23/18 13:35 Dose: 30 ml Magnesium Oxide (Mag-Ox -) 400 mg PO BID [facility] Last Admin: 03/24/18 21:14 Dose: 400 mg Meclizine HCl (Antivert -) 25 mg PO TID [facility] Last Admin: 03/25/18 05:30 Dose: 25 mg Metoprolol Tartrate (Lopressor -) 25 mg PO DAILY [facility] Last Admin: 03/24/18 11:51 Dose: 25 mg Rosuvastatin Calcium (Crestor -) 10 mg PO [facility] Last Admin: 03/24/18 21:14 Dose: 10 mg - Objective Vital Signs: Vital Signs Temperature 99.4 F 03/25/18 06:00 Pulse Rate 72 03/25/18 06:00 Respiratory Rate 20 03/25/18 06:00 Blood Pressure 134/63 03/25/18 06:00 O2 Sat by Pulse Oximetry (%) 98 03/25/18 06:00 Constitutional: Yes: No Distress Eyes: Yes: Conjunctiva Clear, EOM Intact HENT: Yes: Atraumatic, Normocephalic Neck: Yes: Supple, Trachea Midline Cardiovascular: Yes: Regular Rate and Rhythm, S1, S2 Respiratory: Yes: Regular, CTA Bilaterally Gastrointestinal: Yes: Normal Bowel Sounds, Soft Edema: No Labs: CBC, BMP 03/23/18 10:24 03/23/18 10:24 Problem List - Problems (1) CAD (coronary artery disease) Code(s): I25.10 - ATHSCL HEART DISEASE OF [place] CORONARY ARTERY W/O ANG PCTRS Qualifiers: Coronary Disease-Associated Artery/Lesion type: [place] artery [place] vs. transplanted heart: [place] heart Associated angina: without angina Qualified Code(s): I25.10 - Atherosclerotic heart disease of [place] coronary artery without angina pectoris (2) CHF exacerbation Code(s): I50.9 - HEART FAILURE, UNSPECIFIED Qualifiers: Heart failure type: unspecified Qualified Code(s): I50.9 - Heart failure, unspecified (3) Carotid arterial disease Code(s): I77.9 - DISORDER OF ARTERIES AND ARTERIOLES, UNSPECIFIED Qualifiers: Laterality: unspecified laterality (4) Dizziness Code(s): R42 - DIZZINESS AND GIDDINESS (5) EKG abnormalities Code(s): R94.31 - ABNORMAL ELECTROCARDIOGRAM [ECG] [EKG] (6) Hypertension Code(s): I10 - ESSENTIAL (PRIMARY) HYPERTENSION Qualifiers: Hypertension type: essential hypertension Qualified Code(s): I10 - Essential (primary) hypertension (7) PSVT (paroxysmal supraventricular tachycardia) Code(s): I47.1 - SUPRAVENTRICULAR TACHYCARDIA (8) Stented coronary artery Code(s): Z95.5 - PRESENCE OF CORONARY ANGIOPLASTY IMPLANT AND GRAFT Assessment/Plan (1) Dizziness Code(s): R42 - DIZZINESS AND GIDDINESS (2) CHF exacerbation Code(s): I50.9 - HEART FAILURE, UNSPECIFIED Qualifiers: Heart failure type: unspecified Qualified Code(s): I50.9 - Heart failure, unspecified (3) Hypertension Code(s): I10 - ESSENTIAL (PRIMARY) HYPERTENSION Qualifiers: Hypertension type: essential hypertension Qualified Code(s): I10 - Essential (primary) hypertension (4) PSVT (paroxysmal supraventricular tachycardia) Code(s): I47.1 - SUPRAVENTRICULAR TACHYCARDIA (5) Stented coronary artery Code(s): Z95.5 - PRESENCE OF CORONARY ANGIOPLASTY IMPLANT AND GRAFT (6) Carotid arterial disease Code(s): I77.9 - DISORDER OF ARTERIES AND ARTERIOLES, UNSPECIFIED Qualifiers: Laterality: unspecified laterality (7) Abnormal ECG Code(s): R94.31 - ABNORMAL ELECTROCARDIOGRAM [ECG] [EKG] Sitress Test: Inferiolateral wall Ischemia
[2018-03-25] MEDS ORDERED: REGADENOSON 0.4 MG/5 ML PRE-FILLED SYRINGE IVPUSH ONE (10:30)
[2018-03-25] MEDS: metoPROLOL SUCCINATE 25 MG TAB.SR.24H (FP) PO SCH (14:01)
[2018-03-25] MEDS: MAGNESIUM OXIDE 400 MG TABLET (FP) PO SCH ×2 (14:02→21:18)
[2018-03-25] MEDS: ASPIRIN COATED 81 MG TABLET.EC PO SCH (14:02)
[2018-03-25] MEDS: AZITHROMYCIN 250 MG TABLET PO SCH (14:02)
--- NOTE | 2018-03-25 17:02 | EKG ---
Test Reason : Blood Pressure : / mmHG Vent. Rate : 083 BPM Atrial Rate : 083 BPM P-R Int : 134 ms QRS Dur : 088 ms QT Int : 380 ms P-R-T Axes : 061 046 045 degrees QTc Int : 446 ms NORMAL SINUS RHYTHM NONSPECIFIC ST ABNORMALITY ABNORMAL ECG WHEN COMPARED WITH ECG OF 22-MAR-2018 23:35, ST NO LONGER DEPRESSED IN INFERIOR LEADS NONSPECIFIC T WAVE ABNORMALITY, IMPROVED IN INFERIOR LEADS Confirmed by MD ANALI, RACHEL ([id number]) on 03/25/2018 5:01:30 PM Referred By: Fany DANGELO Confirmed By:RACHEL BRIONES MD
[2018-03-25] MEDS: DOCUSATE SODIUM 100 MG CAPSULE (FP) PO SCH (21:18)
[2018-03-25] MEDS: ROSUVASTATIN CA 10 MG TABLET (FP) PO SCH (21:18)
--- NOTE | 2018-03-25 22:14 | CONSULT ---
Consult - text type - Consultation Consultation Note: NEUROLOGY CONSULTATION is greatly appreciated: NrJacky Rojas's coverage consultation is greatly appreciated. This 83 yo RH man with h/o HTN, Chol is maintained on: Metoprolol; Rosuvastatin ; Diltiazem; Magnesium; Meloxicam; and multiple vitamins. Chronic dizziness without a specific diagnosis and multiple evaluations. Curiously it only occurs when he gets up and attempts to ambulate and never in bed or chair. Pt claims the promble "started on the airplane" and that he has required a cane for "a few months." MRI of brain (reviewed): Scattered white matter microvascular changes. EXAM: Severe distal weakness with inability to extend the fingers (2/5), intrinsics (3/5), severe, B/L footdrop (1/5). Severe atrophy of hand a foot muscles. AREFLEXIA. Pes cavus foot deformities. Decreased vibration to the distal calf. Severe ataxia with B/L footdrop and steppage gait. IMP: Complaint of dizziness is due to severe gait impairment and unsteadiness. 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 SUGGEST: Physiatry consultation. EMG/NCS Check CK, B12 B/L AFO's and PT for gait training with walker Neuro f/u as out patient. Thank you very much, Fabian Mcknight MD
[2018-03-26] MEDS ORDERED: ROSUVASTATIN CA 10 MG TABLET (FP) PO ONE (08:14)
[2018-03-26] MEDS ORDERED: PT OWN MED DRAWER 7, Y5N ONE (10:11)
[2018-03-26] MEDS: ASPIRIN COATED 81 MG TABLET.EC PO SCH (10:13)
[2018-03-26] MEDS: metoPROLOL SUCCINATE 25 MG TAB.SR.24H (FP) PO SCH (10:13)
[2018-03-26] MEDS: AZITHROMYCIN 250 MG TABLET PO SCH (10:13)
[2018-03-26] MEDS: MAGNESIUM OXIDE 400 MG TABLET (FP) PO SCH ×2 (10:13→22:59)
--- NOTE | 2018-03-26 12:24 | PN ---
Progress Note, Physician History of Present Illness: 83M with CAD, Carotid atheromatous disease and HTN who was referred to ER yesterday from an urgent care center for possible CHF after he presented for evaluation of dizziness. Patient returned from the [facility] on 03/20 and states he has been feeling specifically when he stands from a seated or supine position. He even lost balance in the airplane walking to the bathroom. He denies chest pain or SOB, syncope or palpitations. No PND/orthopnea or edema. Denies focal neuro sx. Denies fevers or chills. At the [facility], there was reportedly "fluid" on CXR which was not appreciated on our study. A head CT was negative for acute findings. His BNP was mildly elevated in the 600s but he did not appear clinically volume overloaded. A low grade/borderline elevated temperature of 99.5F was noted and he was cultured in the ER and sent home. He was recalled later because comparison of current ECG to office ECG in January was slightly different showing NSST changes inferiorly and laterally that are slightly more pronounced. - Current Medication List Current Medications: Active Medications Acetaminophen (Tylenol -) 650 mg PO Q4H PRN PRN Reason: FEVER Last Admin: 03/23/18 18:33 Dose: 650 mg Aspirin (Ecotrin -) 81 mg PO DAILY [facility] Last Admin: 03/26/18 10:13 Dose: 81 mg Diltiazem HCl (Cardizem Cd -) 120 mg PO DAILY [facility] Last Admin: 03/26/18 10:13 Dose: 120 mg Docusate Sodium (Colace -) 300 mg PO HS [facility] Last Admin: 03/25/18 21:18 Dose: 300 mg Magnesium Hydroxide (Milk Of Magnesia -) 30 ml PO DAILY PRN PRN Reason: CONSTIPATION Last Admin: 03/23/18 13:35 Dose: 30 ml Magnesium Oxide (Mag-Ox -) 400 mg PO BID [facility] Last Admin: 03/26/18 10:13 Dose: 400 mg Metoprolol Succinate (Toprol Xl -) 25 mg PO DAILY [facility] Last Admin: 03/26/18 10:13 Dose: 25 mg Rosuvastatin Calcium (Crestor -) 20 mg PO [facility] - Objective Vital Signs: Vital Signs Temperature 98.9 F 03/26/18 06:00 Pulse Rate 70 03/26/18 06:00 Respiratory Rate 20 03/26/18 06:00 Blood Pressure 121/58 L 03/26/18 06:00 O2 Sat by Pulse Oximetry (%) 97 03/26/18 06:00 Eyes: Yes: WNL, Conjunctiva Clear, EOM Intact HENT: Yes: WNL, Atraumatic, Normocephalic Neck: Yes: WNL, Supple, Trachea Midline Cardiovascular: Yes: WNL, Regular Rate and Rhythm Respiratory: Yes: WNL, Regular, CTA Bilaterally Gastrointestinal: Yes: WNL, Normal Bowel Sounds Genitourinary: Yes: WNL Musculoskeletal: Yes: WNL Extremities: Yes: WNL Edema: No Integumentary: Yes: WNL Neurological: Yes: WNL, Alert, Oriented ...Motor Strength: WNL Psychiatric: Yes: WNL Labs: CBC, BMP 03/23/18 10:24 03/23/18 10:24 Assessment/Plan - Problems (1) Abnormal ECG Assessment/Plan: please see under "CAD" Code(s): R94.31 - ABNORMAL ELECTROCARDIOGRAM [ECG] [EKG] (2) CAD (coronary artery disease) Assessment/Plan: Hx + stress MIBI 2008-->coronary angiogram at [facility] 2008 that showed moderate 3VD (medical therapy was recommended, with consideration of PCI if pt could tolerate ASA and clopidogrel); pt reportedly had a coronary stent at [facility], but no records were found when that hospital was contacted. Now with new mild T wave changes compared to 01/2018 EKG: consider inferior and/ or lateeral ischemia. TNI <0.02 x 3 stress Lexiscan MIBI positive for moderate inferio-lateral periinfarct ischemia. Will need c. cath Will ask neuro to comment on Plavix use. Code(s): I25.10 - ATHSCL HEART DISEASE OF [place] CORONARY ARTERY W/O ANG PCTRS Qualifiers: Coronary Disease-Associated Artery/Lesion type: [place] artery [place] vs. transplanted heart: [place] heart Associated angina: without angina Qualified Code(s): I25.10 - Atherosclerotic heart disease of [place] coronary artery without angina pectoris (3) Carotid arterial disease Assessment/Plan: moderate bilateral ICA and ECA plaque without significant stenoses noted on 2017 catorid artrery US; CTA neck was order, but pt did not have test done. If neurologist concurs, ecommend CTA or MRA of carotid arteries. F/u lipid panel; aggressive lipid control with statin, diet, exercise. Code(s): I77.9 - DISORDER OF ARTERIES AND ARTERIOLES, UNSPECIFIED Qualifiers: Laterality: unspecified laterality (4) Dizziness Assessment/Plan: Holter: NSR; no significant pauses; APCs, with one 4-beat run of ?PSVT at 156 bpm. F/u orthostatic VS. hydration. F/u with neurologist. Code(s): R42 - DIZZINESS AND GIDDINESS (5) Hypertension Code(s): I10 - ESSENTIAL (PRIMARY) HYPERTENSION Qualifiers: Hypertension type: essential hypertension Qualified Code(s): I10 - Essential (primary) hypertension (6) Accidental fall Code(s): W19.XXXA - UNSPECIFIED FALL, INITIAL ENCOUNTER (7) PSVT (paroxysmal supraventricular tachycardia) Assessment/Plan: Holter notes brief runs of PSVT. Pt is on metoprolol (will change to succinated for better 24 hour coverage; if it is felt necessary to use tartrate, it shouild be given bid-tid). He is also on diltiazem. F/u EKG and Holter serially. Code(s): I47.1 - SUPRAVENTRICULAR TACHYCARDIA
--- NOTE | 2018-03-26 17:43 | PN ---
Progress Note, Physician Chief Complaint: Pt is having dizziness No Chest pain No abd pain stress test positive Pt seen By Neurology Inconclusive History of Present Illness: Pt is still having Dizziness Pt Stress test positve - Current Medication List Current Medications: Active Medications Acetaminophen (Tylenol -) 650 mg PO Q4H PRN PRN Reason: FEVER Last Admin: 03/23/18 18:33 Dose: 650 mg Aspirin (Ecotrin -) 81 mg PO DAILY [facility] Last Admin: 03/26/18 10:13 Dose: 81 mg Diltiazem HCl (Cardizem Cd -) 120 mg PO DAILY [facility] Last Admin: 03/26/18 10:13 Dose: 120 mg Docusate Sodium (Colace -) 300 mg PO HS [facility] Last Admin: 03/25/18 21:18 Dose: 300 mg Magnesium Hydroxide (Milk Of Magnesia -) 30 ml PO DAILY PRN PRN Reason: CONSTIPATION Last Admin: 03/23/18 13:35 Dose: 30 ml Magnesium Oxide (Mag-Ox -) 400 mg PO BID [facility] Last Admin: 03/26/18 10:13 Dose: 400 mg Metoprolol Succinate (Toprol Xl -) 25 mg PO DAILY [facility] Last Admin: 03/26/18 10:13 Dose: 25 mg Rosuvastatin Calcium (Crestor -) 20 mg PO [facility] - Objective Vital Signs: Vital Signs Temperature 98.4 F 03/26/18 14:00 Pulse Rate 68 03/26/18 14:00 Respiratory Rate 20 03/26/18 14:00 Blood Pressure 130/64 03/26/18 14:00 O2 Sat by Pulse Oximetry (%) 97 03/26/18 14:00 Constitutional: Yes: No Distress, Calm Eyes: Yes: Conjunctiva Clear, EOM Intact HENT: Yes: Atraumatic, Normocephalic Neck: Yes: Supple, Trachea Midline Cardiovascular: Yes: Regular Rate and Rhythm Respiratory: Yes: Regular, CTA Bilaterally Gastrointestinal: Yes: Normal Bowel Sounds, Soft Musculoskeletal: Yes: Joint Stiffness Edema: No Labs: CBC, BMP 03/23/18 10:24 03/23/18 10:24 Problem List - Problems (1) CAD (coronary artery disease) Code(s): I25.10 - ATHSCL HEART DISEASE OF [place] CORONARY ARTERY W/O ANG PCTRS Qualifiers: Coronary Disease-Associated Artery/Lesion type: [place] artery [place] vs. transplanted heart: [place] heart Associated angina: without angina Qualified Code(s): I25.10 - Atherosclerotic heart disease of [place] coronary artery without angina pectoris (2) CHF exacerbation Code(s): I50.9 - HEART FAILURE, UNSPECIFIED Qualifiers: Heart failure type: unspecified Qualified Code(s): I50.9 - Heart failure, unspecified (3) Carotid arterial disease Code(s): I77.9 - DISORDER OF ARTERIES AND ARTERIOLES, UNSPECIFIED Qualifiers: Laterality: unspecified laterality (4) Dizziness Code(s): R42 - DIZZINESS AND GIDDINESS (5) EKG abnormalities Code(s): R94.31 - ABNORMAL ELECTROCARDIOGRAM [ECG] [EKG] Assessment/Plan (1) Dizziness: MRI of Brain and Neck is negative Code(s): R42 - DIZZINESS AND GIDDINESS (2) CHF exacerbation Code(s): I50.9 - HEART FAILURE, UNSPECIFIED Qualifiers: Heart failure type: unspecified Qualified Code(s): I50.9 - Heart failure, unspecified (3) Hypertension Code(s): I10 - ESSENTIAL (PRIMARY) HYPERTENSION Qualifiers: Hypertension type: essential hypertension Qualified Code(s): I10 - Essential (primary) hypertension (4) PSVT (paroxysmal supraventricular tachycardia) Code(s): I47.1 - SUPRAVENTRICULAR TACHYCARDIA (5) Stented coronary artery Code(s): Z95.5 - PRESENCE OF CORONARY ANGIOPLASTY IMPLANT AND GRAFT (6) Carotid arterial disease Code(s): I77.9 - DISORDER OF ARTERIES AND ARTERIOLES, UNSPECIFIED Qualifiers: Laterality: unspecified laterality (7) Abnormal ECG Code(s): R94.31 - ABNORMAL ELECTROCARDIOGRAM [ECG] [EKG] Sitress Test: Inferiolateral wall Ischemia discussed with daughter
[2018-03-26] MEDS ORDERED: ROSUVASTATIN CA 20 MG TABLET (FP) PO SCH (22:00)
[2018-03-26] MEDS: DOCUSATE SODIUM 100 MG CAPSULE (FP) PO SCH (22:59)
[2018-03-27 07:30] LABS: BASO % 0.4 % (0-2.0); EOS % 1.7 % (0-4.5); HEMATOCRIT 35.7 % (35.4-49); LYMPH % 18.1 % (8-40); MCH 32.1 pg (25.7-33.7); MCHC 33.6 g/dl (32.0-35.9); MEAN CELL VOLUME 95.6 fl (80-96); MEAN PLT VOLUME 7.1 fl (7.5-11.1); MONO % 9.6 % (3.8-10.2); NEUT % 70.2 % (42.8-82.8); PLATELET COUNT 335 K/MM3 (134-434); RBC 3.74 M/mm3 (4.00-5.60); RDW 13.8 % (11.9-15.9); WHITE BLOOD COUNT 5.7 K/mm3 (4.0-10.0)
[2018-03-27 07:52] LABS: ANION GAP 7 MMOL/L (8-16); BLOOD UREA NITROGEN 13 mg/dL (7-18); CALCIUM 8.4 mg/dL (8.5-10.1); CHLORIDE 101 mmol/L (98-107); CO2 30 mmol/L (21-32); CREATININE 1.2 mg/dL (0.55-1.3); GLUCOSE,RANDOM 88 mg/dL (74-106); POTASSIUM 4.6 mmol/L (3.5-5.1); SODIUM 138 mmol/L (136-145)
[2018-03-27 10:25] VITALS: PULSE 67
[2018-03-27] MEDS: ASPIRIN COATED 81 MG TABLET.EC PO SCH (10:31)
[2018-03-27] MEDS: MAGNESIUM OXIDE 400 MG TABLET (FP) PO SCH (10:32)
[2018-03-27] MEDS: metoPROLOL SUCCINATE 25 MG TAB.SR.24H (FP) PO SCH (10:32)
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
[2018-03-27 13:39] LABS: INR 1.04 (0.83-1.09); PROTHROMBIN TIME (PATIENT) 12.3 SEC (9.7-13.0)
[2018-03-27 14:21] VITALS: BP 120/64; TEMP 98.4
--- NOTE | 2018-03-27 22:16 | PN ---
Progress Note, Physician Chief Complaint: Pt is going for cardiac cath for Ischemic changes seen in stress test History of Present Illness: Pt admitted with [place]iz[place]ess persistant with EKG changes and Stress test positive discussed with cardiology - Objective Vital Signs: Vital Signs Temperature 98.4 F 03/27/18 14:00 Pulse Rate 67 03/27/18 14:00 Respiratory Rate 17 03/27/18 14:00 Blood Pressure 120/64 03/27/18 14:00 O2 Sat by Pulse Oximetry (%) 97 03/26/18 22:00 Constitutional: Yes: Well Nourished, Other (Dizziness, Unstady gait) Eyes: Yes: Conjunctiva Clear, EOM Intact HENT: Yes: Atraumatic, Normocephalic Neck: Yes: Supple, Trachea Midline Cardiovascular: Yes: Regular Rate and Rhythm Respiratory: Yes: Regular, CTA Bilaterally Gastrointestinal: Yes: Normal Bowel Sounds, Soft Musculoskeletal: Yes: Joint Stiffness Edema: No Labs: CBC, BMP 03/27/18 06:30 03/27/18 06:30 INR, PTT INR 1.04 (0.83-1.09) 03/27/18 12:20 Problem List - Problems (1) Dizziness Code(s): R42 - DIZZINESS AND GIDDINESS (2) CHF exacerbation Code(s): I50.9 - HEART FAILURE, UNSPECIFIED Qualifiers: Heart failure type: unspecified Qualified Code(s): I50.9 - Heart failure, unspecified (3) PSVT (paroxysmal supraventricular tachycardia) Code(s): I47.1 - SUPRAVENTRICULAR TACHYCARDIA (4) Stented coronary artery Code(s): Z95.5 - PRESENCE OF CORONARY ANGIOPLASTY IMPLANT AND GRAFT (5) Hypertension Code(s): I10 - ESSENTIAL (PRIMARY) HYPERTENSION Qualifiers: Hypertension type: essential hypertension Qualified Code(s): I10 - Essential (primary) hypertension (6) Carotid arterial disease Code(s): I77.9 - DISORDER OF ARTERIES AND ARTERIOLES, UNSPECIFIED Qualifiers: Laterality: unspecified laterality Assessment/Plan (1) Dizziness: MRI of Brain and Neck is negative Code(s): R42 - DIZZINESS AND GIDDINESS (2) CHF exacerbation Code(s): I50.9 - HEART FAILURE, UNSPECIFIED Qualifiers: Heart failure type: unspecified Qualified Code(s): I50.9 - Heart failure, unspecified (3) Hypertension Code(s): I10 - ESSENTIAL (PRIMARY) HYPERTENSION Qualifiers: Hypertension type: essential hypertension Qualified Code(s): I10 - Essential (primary) hypertension (4) PSVT (paroxysmal supraventricular tachycardia) Code(s): I47.1 - SUPRAVENTRICULAR TACHYCARDIA (5) Stented coronary artery Code(s): Z95.5 - PRESENCE OF CORONARY ANGIOPLASTY IMPLANT AND GRAFT (6) Carotid arterial disease Code(s): I77.9 - DISORDER OF ARTERIES AND ARTERIOLES, UNSPECIFIED Qualifiers: Laterality: unspecified laterality (7) Abnormal ECG Code(s): R94.31 - ABNORMAL ELECTROCARDIOGRAM [ECG] [EKG] Sitress Test: Inferiolateral wall Ischemia discussed with daughter discussed with cardiology
== END 2018-03-27 16:00 | disposition short-term general hospital (02) | DRG 303 ==
LOC: JER 21:59 → INTOOBSV 22:49 → UNDOADMOB 22:49 → JERBED 22:49 → J6S 03-23 01:04 → JERBED 03-23 01:04 → OBSVTOIN 03-27 14:10
PROVIDERS: ADMIT Internal Medicine; ATTEND Internal Medicine
DX: I25.10 Atherosclerotic heart disease of native coronary artery without angina pectoris (principal); I47.1 Supraventricular tachycardia; I11.0 Hypertensive heart disease with heart failure; R94.31 Abnormal electrocardiogram [ECG] [EKG]; I77.9 Disorder of arteries and arterioles, unspecified; K44.9 Diaphragmatic hernia without obstruction or gangrene; M19.90 Unspecified osteoarthritis, unspecified site; E11.42 Type 2 diabetes mellitus with diabetic polyneuropathy; M21.372 Foot drop, left foot; M21.371 Foot drop, right foot; G71.09 Other specified muscular dystrophies; G72.9 Myopathy, unspecified; R26.81 Unsteadiness on feet; I99.8 Other disorder of circulatory system
CPT/HCPCS: 36415; 70450-TC; 70547-TC; 70551-TC; 71045-TC-FY; 72050-TC-FY; 78452-TC; 80048; 80053; 80061; 81003; 82607; 82803; 83605; 83721; 83735; 83880; 84100; 84439; 84443; 84484; 85025; 85610; 85730; 87040; 87086; 87804; 90670; 93005; 93010; 93017; 93225; 93226; 93306-TC; 93880-TC; 96360; 97116-GP; 97161-GP; 99283-25; 99284-25; A9502; G0378; J2785

== ENCOUNTER 2020-12-26 15:13 | Inpatient (IN) | payer OTHER, BC ==
[2020-12-26 18:48] LABS: BASO % 0.9 % (0-2.0); EOS % 3.6 % (0-4.5); HEMATOCRIT 36.3 % (35.4-49); HEMOGLOBIN 12.4 GM/dL (11.7-16.9); LYMPH % 32.9 % (8-40); MCH 33.5 pg (25.7-33.7); MEAN CELL VOLUME 98.6 fl (80-96); MEAN PLT VOLUME 7.6 fl (7.5-11.1); MONO % 11.1 % (3.8-10.2); NEUT % 51.5 % (42.8-82.8); PLATELET COUNT 218 10^3/uL (134-434); RBC 3.68 M/mm3 (4.00-5.60); RDW 13.7 % (11.9-15.9); WHITE BLOOD COUNT 6.1 K/mm3 (4.0-10.0)
[2020-12-26 19:11] LABS: CHLORIDE 107 mmol/L (98-107); SODIUM 142 mmol/L (136-145)
[2020-12-26 19:13] LABS: CALCIUM 8.6 mg/dL (8.5-10.1); GLUCOSE,RANDOM 79 mg/dL (74-106)
[2020-12-26 19:15] LABS: ANION GAP 6 MMOL/L (8-16); BLOOD UREA NITROGEN 20.3 mg/dL (7-18); CO2 28 mmol/L (21-32); MAGNESIUM 2.5 mg/dL (1.8-2.4)
[2020-12-26 19:18] LABS: CREATININE 1.6 mg/dL (0.55-1.3); SGOT/AST 25 U/L (15-37); SGPT/ALT 27 U/L (13-61)
[2020-12-26 19:19] LABS: BILIRUBIN,TOTAL 0.5 mg/dL (0.2-1); TOT PROT 7.2 g/dl (6.4-8.2)
[2020-12-26 19:20] LABS: ALK PHOS 81 U/L (45-117)
[2020-12-26 19:23] LABS: N-TERMINAL BNP 729.4 pg/ml (5-450)
[2020-12-26] MEDS ORDERED: SODIUM CHLORIDE 1,000 ML IV SCH (22:00)
[2020-12-26] MEDS ORDERED: ASPIRIN 81 MG CHEWABLE TABLETS ONE (23:08)
[2020-12-26] MEDS ORDERED: ATORVASTATIN CA 40 MG TABLET (FP) ONE (23:08)
[2020-12-26] MEDS: ASPIRIN 81 MG CHEWABLE TABLETS PO SCH (23:16)
[2020-12-26] MEDS: ATORVASTATIN CA 40 MG TABLET (FP) PO SCH (23:16)
[2020-12-27 04:35] VITALS: BMI 26.1
[2020-12-27 07:04] LABS: EOS % 6.1 % (0-4.5); HEMATOCRIT 38.5 % (35.4-49); HEMOGLOBIN 12.8 GM/dL (11.7-16.9); LYMPH % 28.4 % (8-40); MCHC 33.1 g/dl (32.0-35.9); MEAN CELL VOLUME 99.6 fl (80-96); MEAN PLT VOLUME 7.7 fl (7.5-11.1); MONO % 9.6 % (3.8-10.2); NEUT % 54.9 % (42.8-82.8); PLATELET COUNT 188 10^3/uL (134-434); RBC 3.87 M/mm3 (4.00-5.60); RDW 13.7 % (11.9-15.9); WHITE BLOOD COUNT 5.1 K/mm3 (4.0-10.0)
[2020-12-27 07:15] LABS: CHLORIDE 110 mmol/L (98-107); SODIUM 144 mmol/L (136-145)
[2020-12-27 07:17] LABS: CALCIUM 8.5 mg/dL (8.5-10.1)
[2020-12-27 07:18] LABS: ANION GAP 6 MMOL/L (8-16); BLOOD UREA NITROGEN 16.4 mg/dL (7-18); CO2 28 mmol/L (21-32)
[2020-12-27 07:21] LABS: ALBUMIN 3.8 g/dl (3.4-5.0); CHOLESTEROL 152 mg/dL (50-200); CREATININE 1.4 mg/dL (0.55-1.3); GLUCOSE,RANDOM 88 mg/dL (74-106); SGOT/AST 25 U/L (15-37); SGPT/ALT 25 U/L (13-61); TRIGLYCERIDES 140 mg/dL (0-150)
[2020-12-27 07:22] LABS: BILIRUBIN,TOTAL 0.8 mg/dL (0.2-1); LDL CHOLESTEROL (ONLY SJRH) 82 mg/dL (5-100); TOT PROT 6.6 g/dl (6.4-8.2)
[2020-12-27 07:23] LABS: ALK PHOS 74 U/L (45-117); HDL CHOLESTEROL 50 mg/dL (40-60)
[2020-12-27] MEDS: metoPROLOL SUCCINATE 25 MG TAB.SR.24H (FP) PO SCH (09:21)
[2020-12-27] MEDS: MEMANTINE HCL 5 MG TABLET (UD) PO SCH ×2 (09:21→21:09)
[2020-12-27] MEDS: MECLIZINE HCL 25 MG TABLET (FP) PO SCH ×2 (14:52→21:09)
[2020-12-27 18:34] LABS: PH,URINE 8.5 (5.0-8.0); URINE APPEARANCE CLEAR; URINE BILIRUBIN NEGATIVE (NEGATIVE); URINE COLOR YELLOW; URINE GLUCOSE (UA) NEGATIVE (NEGATIVE); URINE KETONE NEGATIVE (NEGATIVE); URINE LEUK ESTERASE NEGATIVE (NEGATIVE); URINE NITRITE NEGATIVE (NEGATIVE); URINE PROTEIN NEGATIVE (NEGATIVE)
[2020-12-27] MEDS: ATORVASTATIN CA 40 MG TABLET (FP) PO SCH (21:09)
[2020-12-27] MEDS: ASPIRIN 81 MG CHEWABLE TABLETS PO SCH (21:09)
[2020-12-28] MEDS: MECLIZINE HCL 25 MG TABLET (FP) PO SCH ×3 (06:01→21:18)
[2020-12-28 07:13] LABS: BASO % 0.9 % (0-2.0); EOS % 7.1 % (0-4.5); HEMATOCRIT 37.4 % (35.4-49); HEMOGLOBIN 12.6 GM/dL (11.7-16.9); LYMPH % 28.3 % (8-40); MCH 33.3 pg (25.7-33.7); MCHC 33.7 g/dl (32.0-35.9); MEAN CELL VOLUME 98.6 fl (80-96); MEAN PLT VOLUME 7.4 fl (7.5-11.1); NEUT % 53.7 % (42.8-82.8); PLATELET COUNT 193 10^3/uL (134-434); RBC 3.79 M/mm3 (4.00-5.60); RDW 13.8 % (11.9-15.9); WHITE BLOOD COUNT 4.8 K/mm3 (4.0-10.0)
[2020-12-28 07:41] LABS: CHLORIDE 109 mmol/L (98-107); SODIUM 142 mmol/L (136-145)
[2020-12-28 07:45] LABS: ANION GAP 7 MMOL/L (8-16); BLOOD UREA NITROGEN 14.4 mg/dL (7-18); CALCIUM 8.6 mg/dL (8.5-10.1); CO2 27 mmol/L (21-32); GLUCOSE,RANDOM 86 mg/dL (74-106)
[2020-12-28 07:48] LABS: CREATININE 1.3 mg/dL (0.55-1.3)
[2020-12-28 09:30] LABS: ERYTHROCYTE SEDIMENTATION RATE 27 mm/hr (0-20)
[2020-12-28] MEDS: MEMANTINE HCL 5 MG TABLET (UD) PO SCH ×2 (09:41→21:18)
[2020-12-28] MEDS: metoPROLOL SUCCINATE 25 MG TAB.SR.24H (FP) PO SCH (09:41)
[2020-12-28] MEDS: ATORVASTATIN CA 40 MG TABLET (FP) PO SCH (21:18)
[2020-12-28] MEDS: ASPIRIN 81 MG CHEWABLE TABLETS PO SCH (21:18)
[2020-12-28] MEDS: amLODIPine BESYLATE 10 MG TABLET (FP) PO SCH (21:18)
[2020-12-29] MEDS: MECLIZINE HCL 25 MG TABLET (FP) PO SCH ×2 (06:04→13:22)
[2020-12-29 07:30] LABS: ALBUMIN 3.5 g/dl (3.4-5.0); BLOOD UREA NITROGEN 18.4 mg/dL (7-18); CALCIUM 8.3 mg/dL (8.5-10.1)
[2020-12-29 07:34] LABS: BILIRUBIN,TOTAL 0.5 mg/dL (0.2-1); TOT PROT 6.6 g/dl (6.4-8.2)
[2020-12-29 07:35] LABS: CREATININE 1.3 mg/dL (0.55-1.3)
[2020-12-29] MEDS: amLODIPine BESYLATE 10 MG TABLET (FP) PO SCH (10:00)
[2020-12-29] MEDS: MEMANTINE HCL 5 MG TABLET (UD) PO SCH (10:00)
[2020-12-29] MEDS: metoPROLOL SUCCINATE 25 MG TAB.SR.24H (FP) PO SCH (10:00)
[2020-12-29 15:02] VITALS: BP 109/79; PULSE 80; TEMP 98.6
== END 2020-12-29 18:48 | disposition home or self-care (01) | DRG 312 ==
LOC: JER 15:13 → JERBED 20:21 → J4W 12-27 00:23 → OBSVTOIN 12-27 10:48
PROVIDERS: ADMIT Internal Medicine; ATTEND Internal Medicine
DX: R55 Syncope and collapse (principal); I50.32 Chronic diastolic (congestive) heart failure; I25.10 Atherosclerotic heart disease of native coronary artery without angina pectoris; E78.5 Hyperlipidemia, unspecified; F03.90 Unspecified dementia, unspecified severity, without behavioral disturbance, psychotic disturbance, mood disturbance, and anxiety; I11.0 Hypertensive heart disease with heart failure; K44.9 Diaphragmatic hernia without obstruction or gangrene; M19.90 Unspecified osteoarthritis, unspecified site; E86.0 Dehydration; K21.9 Gastro-esophageal reflux disease without esophagitis; R29.6 Repeated falls; I77.9 Disorder of arteries and arterioles, unspecified; I08.1 Rheumatic disorders of both mitral and tricuspid valves; Z95.5 Presence of coronary angioplasty implant and graft; Z95.1 Presence of aortocoronary bypass graft
CPT/HCPCS: 36415; 70450-TC; 70551-TC; 71046-TC-FY; 76775-TC; 80048; 80053; 80061; 81003; 82550; 82553; 83721; 83735; 83880; 84443; 84484; 85025; 85651; 86140; 87086; 93005; 93010; 93306-TC; 93880-TC; 97116-GP; 97162-GP; 99285-25; C9803; G0378; U0003; U0005

== ENCOUNTER 2022-10-25 07:58 | Inpatient (IN) | payer OTHER ==
[2022-10-25] MEDS ORDERED: ACETAMINOPHEN 1000 MG/100 ML BAG IVPB ONE (08:43)
[2022-10-25] MEDS ORDERED: ACETAMINOPHEN INJECTION 100 ML IVPB ONE (09:17)
[2022-10-25 10:18] LABS: POTASSIUM 5.5 mmol/L (3.5-5.1)
[2022-10-25 10:20] LABS: ALBUMIN 3.6 g/dl (3.4-5.0)
[2022-10-25 10:25] LABS: BILIRUBIN,TOTAL 0.5 mg/dL (0.2-1); TOT PROT 8.1 g/dl (6.4-8.2)
[2022-10-25] MEDS ORDERED: SODIUM CHLORIDE 0.9% 500 ML INFUS.BAG IV ONE (10:29)
[2022-10-25 11:50] LABS: POTASSIUM 4.8 mmol/L (3.5-5.1)
[2022-10-25 11:51] LABS: CALCIUM 9.1 mg/dL (8.5-10.1)
[2022-10-25 11:52] LABS: BLOOD UREA NITROGEN 29.1 mg/dL (7-18)
[2022-10-25 12:14] LABS: URINE APPEARANCE CLEAR; URINE BILIRUBIN NEGATIVE (NEGATIVE); URINE COLOR YELLOW; URINE GLUCOSE (UA) NEGATIVE (NEGATIVE); URINE KETONE NEGATIVE (NEGATIVE); URINE LEUK ESTERASE NEGATIVE (NEGATIVE); URINE NITRITE NEGATIVE (NEGATIVE); URINE PROTEIN NEGATIVE (NEGATIVE); URINE UROBILINOGEN 0.2 mg/dL (0.2-1.0)
[2022-10-25] MEDS ORDERED: CEFTRIAXONE 1,000 MG in DEXTROSE 5%-WATER - 50 ML IVPB ONE (12:27)
[2022-10-25] MEDS ORDERED: AZITHROMYCIN IVPB 500 MG in DEXTROSE 5%-WATER - 250 ML IVPB ONE (12:27)
[2022-10-25 12:30] LABS: BASO % 0.8 % (0-2.0); EOS % 3.4 % (0-4.5); HEMOGLOBIN 9.8 GM/dL (11.7-16.9); LYMPH % 29.3 % (8-40); MCH 31.7 pg (25.7-33.7); MCHC 33.7 g/dl (32.0-35.9); MEAN CELL VOLUME 94.2 fl (80-96); MEAN PLT VOLUME 8.2 fl (7.5-11.1); MONO % 8.7 % (3.8-10.2); NEUT % 57.8 % (42.8-82.8); PLATELET COUNT 192 10^3/uL (134-434); RBC 3.08 M/mm3 (4.00-5.60); RDW 13.9 % (11.9-15.9); WHITE BLOOD COUNT 4.7 K/mm3 (4.0-10.0)
[2022-10-25] MEDS ORDERED: CEFTRIAXONE 1 GM/50 ML BAG ONE (12:33)
[2022-10-25] MEDS ORDERED: AZITHROMYCIN IVPB 500 MG/250 ML BAG IVPB ONE (12:40)
[2022-10-25] MEDS ORDERED: SODIUM CHLORIDE 1,000 ML IV SCH (17:45)
[2022-10-25 17:58] VITALS: RESP 18
[2022-10-25] MEDS: HEPARIN NA (PORCINE) 5,000 UNITS/ML 1ML VIAL SQ SCH (22:14)
[2022-10-25] MEDS: QUEtiapine FUMARATE 25 MG TABLET PO SCH (22:14)
[2022-10-25] MEDS: MEMANTINE HCL 10 MG TABLET (FP) PO SCH (22:14)
[2022-10-26] MEDS: DONEPEZIL HCL 5 MG TABLET (FP) PO SCH (09:18)
[2022-10-26] MEDS: MEMANTINE HCL 10 MG TABLET (FP) PO SCH ×2 (09:18→21:26)
[2022-10-26] MEDS: CEFTRIAXONE 1 GM in DEXTROSE 5%-WATER - 50 ML IVPB SCH (09:18)
[2022-10-26] MEDS: HEPARIN NA (PORCINE) 5,000 UNITS/ML 1ML VIAL SQ SCH ×2 (09:18→21:26)
[2022-10-26] MEDS: AZITHROMYCIN IVPB 250 MG in DEXTROSE 5%-WATER - 250 ML IVPB SCH (10:39)
[2022-10-26 12:48] LABS: POTASSIUM 4.5 mmol/L (3.5-5.1)
[2022-10-26 12:51] LABS: ALBUMIN 3.1 g/dl (3.4-5.0); BLOOD UREA NITROGEN 25.5 mg/dL (7-18); CALCIUM 8.4 mg/dL (8.5-10.1)
[2022-10-26 12:55] LABS: CREATININE 1.9 mg/dL (0.55-1.3)
[2022-10-26 12:56] LABS: BILIRUBIN,TOTAL 0.6 mg/dL (0.2-1); TOT PROT 6.6 g/dl (6.4-8.2)
[2022-10-26 16:10] VITALS: BMI 26.2
[2022-10-26] MEDS ORDERED: SODIUM CHLORIDE 0.45% 1,000 ML IV SCH (16:15)
[2022-10-26 17:08] LABS: PH,URINE 5.5 (5.0-8.0); URINE APPEARANCE CLEAR; URINE BILIRUBIN NEGATIVE (NEGATIVE); URINE COLOR YELLOW; URINE GLUCOSE (UA) NEGATIVE (NEGATIVE); URINE KETONE NEGATIVE (NEGATIVE); URINE LEUK ESTERASE NEGATIVE (NEGATIVE); URINE NITRITE NEGATIVE (NEGATIVE); URINE PROTEIN NEGATIVE (NEGATIVE); URINE UROBILINOGEN 0.2 mg/dL (0.2-1.0)
[2022-10-26] MEDS: QUEtiapine FUMARATE 25 MG TABLET PO SCH (21:26)
[2022-10-27] MEDS: CEFTRIAXONE 1 GM in DEXTROSE 5%-WATER - 50 ML IVPB SCH (09:02)
[2022-10-27] MEDS: DONEPEZIL HCL 5 MG TABLET (FP) PO SCH (09:02)
[2022-10-27] MEDS: MEMANTINE HCL 10 MG TABLET (FP) PO SCH ×2 (09:02→22:32)
[2022-10-27] MEDS: HEPARIN NA (PORCINE) 5,000 UNITS/ML 1ML VIAL SQ SCH ×2 (09:03→22:32)
[2022-10-27] MEDS: AZITHROMYCIN IVPB 250 MG in DEXTROSE 5%-WATER - 250 ML IVPB SCH (09:06)
[2022-10-27 11:09] LABS: POTASSIUM 4.3 mmol/L (3.5-5.1)
[2022-10-27 11:11] LABS: CALCIUM 8.6 mg/dL (8.5-10.1)
[2022-10-27 11:12] LABS: ALBUMIN 3.2 g/dl (3.4-5.0); BLOOD UREA NITROGEN 21.2 mg/dL (7-18)
[2022-10-27 11:15] LABS: CREATININE 1.7 mg/dL (0.55-1.3)
[2022-10-27 11:16] LABS: BILIRUBIN,TOTAL 0.3 mg/dL (0.2-1); TOT PROT 6.9 g/dl (6.4-8.2)
[2022-10-27] MEDS ORDERED: SODIUM CHLORIDE 0.45% 1,000 ML IV SCH (14:45)
[2022-10-27 16:44] LABS: BASO % 0.7 % (0-2.0); HEMATOCRIT 28.6 % (35.4-49); HEMOGLOBIN 9.4 GM/dL (11.7-16.9); LYMPH % 31.3 % (8-40); MCH 30.8 pg (25.7-33.7); MCHC 32.8 g/dl (32.0-35.9); MEAN CELL VOLUME 93.9 fl (80-96); MEAN PLT VOLUME 7.6 fl (7.5-11.1); MONO % 10.1 % (3.8-10.2); NEUT % 50.9 % (42.8-82.8); PLATELET COUNT 190 10^3/uL (134-434); RBC 3.05 M/mm3 (4.00-5.60); RDW 14.1 % (11.9-15.9); WHITE BLOOD COUNT 3.7 K/mm3 (4.0-10.0)
[2022-10-27] MEDS: ACETAMINOPHEN 325 MG TABLET (FP) PO PRN (22:32)
[2022-10-27] MEDS: QUEtiapine FUMARATE 25 MG TABLET PO SCH (22:32)
[2022-10-28] MEDS: HEPARIN NA (PORCINE) 5,000 UNITS/ML 1ML VIAL SQ SCH ×2 (09:08→21:19)
[2022-10-28] MEDS: ACETAMINOPHEN 325 MG TABLET (FP) PO PRN ×2 (09:08→15:29)
[2022-10-28] MEDS: CEFTRIAXONE 1 GM in DEXTROSE 5%-WATER - 50 ML IVPB SCH (09:10)
[2022-10-28] MEDS: DONEPEZIL HCL 5 MG TABLET (FP) PO SCH (09:10)
[2022-10-28] MEDS: NEBIVOLOL 2.5 MG TABLET (FP) PO SCH (09:10)
[2022-10-28] MEDS: MEMANTINE HCL 10 MG TABLET (FP) PO SCH ×2 (09:10→21:19)
[2022-10-28 09:32] LABS: POTASSIUM 4.8 mmol/L (3.5-5.1)
[2022-10-28 09:34] LABS: CALCIUM 8.7 mg/dL (8.5-10.1)
[2022-10-28 09:36] LABS: BLOOD UREA NITROGEN 17.4 mg/dL (7-18)
[2022-10-28 09:39] LABS: CREATININE 1.8 mg/dL (0.55-1.3)
[2022-10-28] MEDS: AZITHROMYCIN IVPB 250 MG in DEXTROSE 5%-WATER - 250 ML IVPB SCH (11:02)
[2022-10-28] MEDS: QUEtiapine FUMARATE 25 MG TABLET PO SCH (21:19)
[2022-10-29] MEDS: HEPARIN NA (PORCINE) 5,000 UNITS/ML 1ML VIAL SQ SCH ×2 (09:50→21:52)
[2022-10-29] MEDS: NEBIVOLOL 2.5 MG TABLET (FP) PO SCH (09:51)
[2022-10-29] MEDS: MEMANTINE HCL 10 MG TABLET (FP) PO SCH ×2 (09:51→21:52)
[2022-10-29] MEDS: DONEPEZIL HCL 5 MG TABLET (FP) PO SCH (09:51)
[2022-10-29 11:04] LABS: POTASSIUM 4.2 mmol/L (3.5-5.1)
[2022-10-29 11:09] LABS: CALCIUM 8.8 mg/dL (8.5-10.1)
[2022-10-29 11:10] LABS: BLOOD UREA NITROGEN 16.7 mg/dL (7-18)
[2022-10-29 11:13] LABS: CREATININE 1.7 mg/dL (0.55-1.3)
[2022-10-29] MEDS: QUEtiapine FUMARATE 25 MG TABLET PO SCH (21:52)
[2022-10-30] MEDS: NEBIVOLOL 2.5 MG TABLET (FP) PO SCH (10:23)
[2022-10-30] MEDS: DONEPEZIL HCL 5 MG TABLET (FP) PO SCH (10:24)
[2022-10-30] MEDS: HEPARIN NA (PORCINE) 5,000 UNITS/ML 1ML VIAL SQ SCH (10:24)
[2022-10-30] MEDS: MEMANTINE HCL 10 MG TABLET (FP) PO SCH (10:24)
[2022-10-30 10:57] VITALS: BP 175/70; PULSE 78; TEMP 98.2
== END 2022-10-30 13:34 | disposition home health service (06) | DRG 194 ==
LOC: JER 07:58 → JERBED 12:58 → J5S 16:16 → OBSVTOIN 17:35 → J5S 10-28 18:24
PROVIDERS: ADMIT Internal Medicine; ATTEND Internal Medicine
DX: J18.9 Pneumonia, unspecified organism (principal); F02.818 Dementia in other diseases classified elsewhere, unspecified severity, with other behavioral disturbance; J98.11 Atelectasis; N17.9 Acute kidney failure, unspecified; I13.0 Hypertensive heart and chronic kidney disease with heart failure and stage 1 through stage 4 chronic kidney disease, or unspecified chronic kidney disease; G30.9 Alzheimer's disease, unspecified; R41.82 Altered mental status, unspecified; E86.0 Dehydration; R29.6 Repeated falls; E78.5 Hyperlipidemia, unspecified; I25.10 Atherosclerotic heart disease of native coronary artery without angina pectoris; E11.22 Type 2 diabetes mellitus with diabetic chronic kidney disease; N18.9 Chronic kidney disease, unspecified; I50.9 Heart failure, unspecified; Z95.5 Presence of coronary angioplasty implant and graft; Z95.1 Presence of aortocoronary bypass graft
CPT/HCPCS: 0241U-QW; 36415; 71045-TC-FY; 71250-TC; 74176-TC; 76705-TC; 76775-TC; 80048; 80053; 81003; 82550; 82553; 82570; 82607; 83605; 83690; 83930; 83935; 84300; 84443; 84484; 85025; 86780; 87086; 87899; 93005; 93010; 97116-GP; 97162-GP; 99285-25; G0378; J1644

== ENCOUNTER 2022-12-20 10:30 | Inpatient (IN) | payer OTHER, BC ==
[2022-12-20 11:29] LABS: EOS % 5.4 % (0-4.5); HEMATOCRIT 37.3 % (35.4-49); LYMPH % 40.4 % (8-40); MCH 31.1 pg (25.7-33.7); MCHC 32.3 g/dl (32.0-35.9); MEAN CELL VOLUME 96.3 fl (80-96); MEAN PLT VOLUME 7.4 fl (7.5-11.1); MONO % 7.3 % (3.8-10.2); NEUT % 45.9 % (42.8-82.8); PLATELET COUNT 257 10^3/uL (134-434); RBC 3.87 M/mm3 (4.00-5.60); RDW 14.6 % (11.9-15.9); VENOUS BASE EXCESS -0.9 mmol/L (-2-2); VENOUS O2 SATURATION 38.9 % (70-80); VENOUS PCO2 45.5 mmHg (38-52); VENOUS PH 7.356 (7.310-7.410); WHITE BLOOD COUNT 5.1 K/mm3 (4.0-10.0)
[2022-12-20 11:36] LABS: CHLORIDE 109 mmol/L (98-107); SODIUM 143 mmol/L (136-145)
[2022-12-20 11:38] LABS: ALBUMIN 3.8 g/dl (3.4-5.0); ANION GAP 6 MMOL/L (8-16); BLOOD UREA NITROGEN 21.6 mg/dL (7-18); CALCIUM 9.3 mg/dL (8.5-10.1); CO2 28 mmol/L (21-32); INR 0.95 (0.83-1.09); MAGNESIUM 2.9 mg/dL (1.8-2.4)
[2022-12-20 11:39] LABS: GLUCOSE,RANDOM 95 mg/dL (74-106)
[2022-12-20 11:41] LABS: PH,URINE 5.5 (5.0-8.0); URINE APPEARANCE CLEAR; URINE BILIRUBIN NEGATIVE (NEGATIVE); URINE COLOR YELLOW; URINE GLUCOSE (UA) NEGATIVE (NEGATIVE); URINE KETONE NEGATIVE (NEGATIVE); URINE LEUK ESTERASE NEGATIVE (NEGATIVE); URINE NITRITE NEGATIVE (NEGATIVE); URINE PROTEIN NEGATIVE (NEGATIVE); URINE UROBILINOGEN 0.2 mg/dL (0.2-1.0)
[2022-12-20 11:41] LABS: ACTIVATED PTT 33.2 SECONDS (25.2-36.5); CREATININE 2.1 mg/dL (0.55-1.3); SGPT/ALT 15 U/L (13-61)
[2022-12-20 11:42] LABS: SGOT/AST 32 U/L (15-37)
[2022-12-20 11:43] LABS: BILIRUBIN,TOTAL 0.5 mg/dL (0.2-1); TOT PROT 7.8 g/dl (6.4-8.2)
[2022-12-20 11:44] LABS: ALK PHOS 93 U/L (45-117)
[2022-12-20 11:51] LABS: LACTIC ACID 2.3 mmol/L (0.4-2.0)
[2022-12-20 12:38] LABS: PHENCYCLIDINE,URINE NEGATIVE (NEGATIVE)
[2022-12-20 12:39] LABS: OPIATES, URI NEGATIVE (NEGATIVE); URINE AMPHETAMINES NEGATIVE (NEGATIVE); URINE BARBITURATES NEGATIVE (NEGATIVE); URINE BENZODIAZEPINES NEGATIVE (NEGATIVE)
[2022-12-20 12:42] LABS: COCAINE, UR NEGATIVE (NEGATIVE); METHADONE, UR NEGATIVE (NEGATIVE)
[2022-12-20] MEDS ORDERED: LACTATED RINGERS SOLUTION 1000 ML INFUS.BAG IV ONE (12:45)
[2022-12-20 13:55] LABS: POTASSIUM 4.7 mmol/L (3.5-5.1)
[2022-12-20 13:56] LABS: CALCIUM 9.2 mg/dL (8.5-10.1)
[2022-12-20 13:57] LABS: BLOOD UREA NITROGEN 22.8 mg/dL (7-18)
[2022-12-20] MEDS ORDERED: LORazepam 2 MG/ML SDV VIAL IVPUSH ONE (18:03)
[2022-12-20] MEDS ORDERED: levETIRAcetam 500 MG/5 ML INJECTION VIAL IVPB ONE (18:26)
[2022-12-20] MEDS ORDERED: LACTATED RINGERS SOLUTION 1,000 ML/1,000 ML INFUS.BAG IV SCH (18:30)
[2022-12-20 18:38] VITALS: BMI 24.9
[2022-12-20 19:30] LABS: POTASSIUM 4.4 mmol/L (3.5-5.1)
[2022-12-20 19:32] LABS: CALCIUM 8.8 mg/dL (8.5-10.1)
[2022-12-20 19:33] LABS: ALBUMIN 3.5 g/dl (3.4-5.0); BLOOD UREA NITROGEN 21.6 mg/dL (7-18); MAGNESIUM 2.5 mg/dL (1.8-2.4)
[2022-12-20 19:36] LABS: CREATININE 1.9 mg/dL (0.55-1.3)
[2022-12-20 19:38] LABS: BILIRUBIN,TOTAL 0.4 mg/dL (0.2-1); TOT PROT 6.9 g/dl (6.4-8.2)
[2022-12-20] MEDS ORDERED: PIPERACILLIN/TAZOB 3.375 GM 3.375 GM in DEXTROSE 5%-WATER - 50 ML IVPB SCH (21:00)
[2022-12-20] MEDS ORDERED: LORazepam 2 MG/ML SDV VIAL IVPUSH PRN (21:23)
[2022-12-20] MEDS: DEXTROSE 5%-0.45% SALINE 1,000 ML IV SCH (21:40)
[2022-12-20] MEDS: PIPERACILLIN/TAZOB 3.375 GM 3.375 GM in DEXTROSE 5%-WATER - 50 ML IVPB SCH (21:42)
[2022-12-20] MEDS: HEPARIN NA (PORCINE) 5,000 UNITS/ML 1ML VIAL SQ SCH (21:42)
[2022-12-20] MEDS: MEMANTINE HCL 10 MG TABLET (FP) PO SCH (21:43)
[2022-12-20] MEDS ORDERED: ATORVASTATIN CA 40 MG TABLET (FP) PO SCH (22:00)
[2022-12-20] MEDS ORDERED: levETIRAcetam 500 MG/5 ML INJECTION VIAL IVPB SCH (22:00)
[2022-12-20] MEDS: LORazepam 2 MG/ML SDV VIAL IVPUSH PRN (23:00)
[2022-12-21] MEDS: PIPERACILLIN/TAZOB 3.375 GM 3.375 GM in DEXTROSE 5%-WATER - 50 ML IVPB SCH ×2 (01:30→09:37)
[2022-12-21 07:52] LABS: BASO % 1.1 % (0-2.0); EOS % 7.9 % (0-4.5); HEMATOCRIT 33.1 % (35.4-49); LYMPH % 31.3 % (8-40); MCH 31.7 pg (25.7-33.7); MCHC 33.1 g/dl (32.0-35.9); MEAN CELL VOLUME 95.8 fl (80-96); MONO % 10.4 % (3.8-10.2); NEUT % 49.3 % (42.8-82.8); PLATELET COUNT 208 10^3/uL (134-434); RBC 3.46 M/mm3 (4.00-5.60); RDW 14.3 % (11.9-15.9); WHITE BLOOD COUNT 4.5 K/mm3 (4.0-10.0)
[2022-12-21 08:11] LABS: POTASSIUM 4.3 mmol/L (3.5-5.1)
[2022-12-21 08:16] LABS: ALBUMIN 3.3 g/dl (3.4-5.0); CALCIUM 8.6 mg/dL (8.5-10.1)
[2022-12-21 08:17] LABS: BLOOD UREA NITROGEN 18.8 mg/dL (7-18)
[2022-12-21 08:19] LABS: CREATININE 1.9 mg/dL (0.55-1.3)
[2022-12-21 08:20] LABS: BILIRUBIN,TOTAL 0.7 mg/dL (0.2-1)
[2022-12-21 08:21] LABS: TOT PROT 6.6 g/dl (6.4-8.2)
[2022-12-21] MEDS: HEPARIN NA (PORCINE) 5,000 UNITS/ML 1ML VIAL SQ SCH ×2 (09:37→22:42)
[2022-12-21] MEDS: NEBIVOLOL 2.5 MG TABLET (FP) PO SCH ×2 (09:37→10:02)
[2022-12-21] MEDS: MEMANTINE HCL 10 MG TABLET (FP) PO SCH ×3 (09:37→22:41)
[2022-12-21] MEDS: PIPERACILLIN/TAZOB 2.25 GM 2.25 GM in DEXTROSE 5%-WATER - 50 ML IVPB SCH (17:39)
[2022-12-21] MEDS: LORazepam 2 MG/ML SDV VIAL IVPUSH PRN (20:14)
[2022-12-21] MEDS: DEXTROSE 5%-0.45% SALINE 1,000 ML IV SCH (21:40)
[2022-12-21] MEDS ORDERED: DONEPEZIL HCL 5 MG TABLET (FP) PO SCH ×2 (22:00)
[2022-12-21] MEDS: ATORVASTATIN CA 40 MG TABLET (FP) PO SCH (22:40)
[2022-12-21] MEDS ORDERED: LORazepam 2 MG/ML SDV VIAL IVPUSH PRN (23:25)
[2022-12-22] MEDS: PIPERACILLIN/TAZOB 2.25 GM 2.25 GM in DEXTROSE 5%-WATER - 50 ML IVPB SCH ×3 (01:10→17:08)
[2022-12-22 08:22] LABS: POTASSIUM 4.1 mmol/L (3.5-5.1)
[2022-12-22 08:24] LABS: ALBUMIN 3.4 g/dl (3.4-5.0); BLOOD UREA NITROGEN 14.4 mg/dL (7-18)
[2022-12-22 08:27] LABS: CALCIUM 8.7 mg/dL (8.5-10.1); CREATININE 1.8 mg/dL (0.55-1.3)
[2022-12-22 08:29] LABS: BILIRUBIN,TOTAL 0.7 mg/dL (0.2-1); TOT PROT 6.9 g/dl (6.4-8.2)
[2022-12-22 08:55] LABS: EOS % 5.7 % (0-4.5); HEMATOCRIT 35.2 % (35.4-49); HEMOGLOBIN 11.6 GM/dL (11.7-16.9); LYMPH % 18.4 % (8-40); MCH 31.5 pg (25.7-33.7); MCHC 32.8 g/dl (32.0-35.9); MEAN PLT VOLUME 8.3 fl (7.5-11.1); MONO % 8.8 % (3.8-10.2); NEUT % 66.1 % (42.8-82.8); PLATELET COUNT 212 10^3/uL (134-434); RBC 3.67 M/mm3 (4.00-5.60); RDW 14.4 % (11.9-15.9); WHITE BLOOD COUNT 6.1 K/mm3 (4.0-10.0)
[2022-12-22] MEDS: MEMANTINE HCL 10 MG TABLET (FP) PO SCH ×2 (09:45→22:33)
[2022-12-22] MEDS: HEPARIN NA (PORCINE) 5,000 UNITS/ML 1ML VIAL SQ SCH ×2 (09:45→22:33)
[2022-12-22] MEDS: NEBIVOLOL 2.5 MG TABLET (FP) PO SCH (09:45)
[2022-12-22] MEDS: DEXTROSE 5%-0.45% SALINE 1,000 ML IV SCH (18:21)
[2022-12-22] MEDS: ATORVASTATIN CA 40 MG TABLET (FP) PO SCH (22:33)
[2022-12-23] MEDS: PIPERACILLIN/TAZOB 2.25 GM 2.25 GM in DEXTROSE 5%-WATER - 50 ML IVPB SCH ×3 (03:17→17:24)
[2022-12-23] MEDS: HEPARIN NA (PORCINE) 5,000 UNITS/ML 1ML VIAL SQ SCH ×2 (09:43→23:22)
[2022-12-23] MEDS: MEMANTINE HCL 10 MG TABLET (FP) PO SCH ×2 (09:43→23:15)
[2022-12-23] MEDS: NEBIVOLOL 2.5 MG TABLET (FP) PO SCH (09:43)
[2022-12-23] MEDS: DEXTROSE 5%-0.45% SALINE 1,000 ML IV SCH ×2 (23:22→23:23)
[2022-12-23] MEDS: ATORVASTATIN CA 40 MG TABLET (FP) PO SCH (23:22)
[2022-12-24] MEDS: PIPERACILLIN/TAZOB 2.25 GM 2.25 GM in DEXTROSE 5%-WATER - 50 ML IVPB SCH ×2 (01:37→09:52)
[2022-12-24 09:48] VITALS: BP 162/73; PULSE 69; RESP 19; TEMP 98.6
[2022-12-24] MEDS: HEPARIN NA (PORCINE) 5,000 UNITS/ML 1ML VIAL SQ SCH (09:51)
[2022-12-24] MEDS: MEMANTINE HCL 10 MG TABLET (FP) PO SCH (09:51)
[2022-12-24] MEDS: NEBIVOLOL 2.5 MG TABLET (FP) PO SCH (09:51)
== END 2022-12-24 14:19 | disposition home health service (06) | DRG 178 ==
LOC: JER 10:30 → JERBED 14:27 → J8W 18:03 → J4W 18:30
PROVIDERS: ADMIT Internal Medicine; ATTEND Internal Medicine
DX: J69.0 Pneumonitis due to inhalation of food and vomit (principal); I13.0 Hypertensive heart and chronic kidney disease with heart failure and stage 1 through stage 4 chronic kidney disease, or unspecified chronic kidney disease; N17.9 Acute kidney failure, unspecified; R41.82 Altered mental status, unspecified; I25.10 Atherosclerotic heart disease of native coronary artery without angina pectoris; E78.5 Hyperlipidemia, unspecified; E11.9 Type 2 diabetes mellitus without complications; G20 Parkinson's disease; F03.90 Unspecified dementia, unspecified severity, without behavioral disturbance, psychotic disturbance, mood disturbance, and anxiety; I50.9 Heart failure, unspecified; N18.9 Chronic kidney disease, unspecified; E86.0 Dehydration; K44.9 Diaphragmatic hernia without obstruction or gangrene; D18.1 Lymphangioma, any site; G40.909 Epilepsy, unspecified, not intractable, without status epilepticus; Z95.5 Presence of coronary angioplasty implant and graft; Z95.1 Presence of aortocoronary bypass graft
CPT/HCPCS: 0241U-QW; 36415; 70450-TC; 71045-TC-FY; 80048; 80053; 80307; 81003; 82550; 82607; 82803; 82962; 83605; 83735; 84146; 84439; 84443; 84484; 85025; 85610; 85730; 87086; 93005; 93010; 99285-25; J1644